=== PATIENT | female | born 1965 | race Caucasian/White ===

== ENCOUNTER 2016-12-05 19:06 | Emergency (ER) | payer OTHER ==
[2016-12-05 19:24] LABS: MANUAL DIFF NEEDED? NO
[2016-12-05 19:26] LABS: BASO% 0.3 % (0.0-0.8); EOS# 0.12 X1000 (0.0-0.7); HEMATOCRIT 42.5 % (37.0-47.0); HEMOGLOBIN 14.4 g/dL (12.0-16.0); LYMPH# 0.96 X1000 (1.2-3.4); LYMPH% 16.1 % (20.5-51.1); MCH 30.4 PG (27-31); MCHC 33.9 g/dL (33-37); MCV 89.9 FL (81-99); MONO# 0.43 X1000 (0.11-0.59); MONO% 7.2 % (1.7-9.3); MPV 8.8 FL (7.4-10.4); NEUT% 74.4 % (42.2-75.2); PLT 435 X1000 (130-400); RBC 4.73 XMIL (4.2-5.4)
[2016-12-05 19:35] LABS: URINE CULTURE NEEDED? NO; URINE MICRO REVIEW NEEDED? NO; URINE SOURCE CLEAN CATCH
[2016-12-05 19:38] LABS: BILIRUBIN URINE NEGATIVE (NEGATIVE); BLOOD URINE NEGATIVE (NEGATIVE); COLOR YELLOW; GLUCOSE URINE NEGATIVE (NEGATIVE); LEUKOCYTES URINE NEGATIVE (NEGATIVE); NITRITE URINE NEGATIVE (NEGATIVE); PROTEIN URINE NEGATIVE (NEGATIVE); SP GRAVITY URINE 1.017; TURBIDITY URINE CLEAR (CLEAR); UROBILINOGEN URINE NORMAL (NORMAL)
[2016-12-05 19:39] LABS: UR EPITHELIAL CELLS <10 /HPF (<10); URINE BACTERIA NEGATIVE /HPF; URINE RBC <10 /HPF (<10); URINE WBC <10 /HPF (<10)
[2016-12-05 19:51] LABS: AGAP 11; ALBUMIN 4.2 g/dL (3.5-5.0); ALKALINE PHOSPHATASE 86 U/L (32-104); AMYLASE 66 U/L (20-200); BUN 15 mg/dL (8-22); CALCIUM 9.7 mg/dL (8.8-10.2); CHLORIDE 99 mmol/L (98-107); COSMO 275; GOT 18 U/L (10-30); GPT 16 U/L (10-36); LIPASE 38 U/L (13-60); SODIUM 137 mmol/L (136-145); TCO2 27 mmol/L (25-35); TOTAL BILIRUBIN 0.24 mg/dL (0.20-1.00); TOTAL PROTEIN 7.8 g/dL (6.3-8.3)
[2016-12-05] MEDS ORDERED: PHENERGAN IM ONE (22:18)
[2016-12-05] MEDS ORDERED: SODIUM CHLORIDE 0.9% INJ ONE ×2 (22:18→22:20)
[2016-12-05] MEDS ORDERED: NS 1,000 ML IV ONE (22:18)
[2016-12-05] MEDS ORDERED: PROTONIX IV ONE (22:20)
[2016-12-05] MEDS ORDERED: G.I. COCKTAIL PO ONE (22:20)
--- NOTE | 2016-12-05 22:20 | PROVIDER DOCUMENTATION ---
HPI-Abdominal Pain/GI Problem - General Chief Complaint: Abdominal Pain Stated Complaint: ABD PAIN Time Seen by Provider: 12/05/16 21:43 Source: patient Allergies/Adverse Reactions: Patient Allergies Allergy/AdvReac Type Severity Reaction Status Date / Time Penicillins Allergy Intermediate RASH Verified 11/15/13 12:20 Home Medications: Home Medication List Medication Instructions Recorded Confirmed Last Taken Type Ciprofloxacin HCl [Cipro] 500 mg PO BID #14 tablet 12/06/16 Unknown Rx Meloxicam [Mobic] 15 mg PO DAILY 12/06/16 12/06/16 12/05/16 History Methylprednisolone [Medrol Dosepak] 4 mg PO DIRECTED #1 package 12/06/16 Unknown Rx Metronidazole 500 mg PO BID #14 tablet 12/06/16 Unknown Rx Pantoprazole [Protonix] 40 mg PO DAILY@0700 #30 tablet 12/06/16 Unknown Rx Promethazine [Phenergan] 25 mg PO Q6H PRN PRN #20 tablet 12/06/16 Unknown Rx Sertraline HCl [Zoloft] 100 mg PO DAILY 12/06/16 12/06/16 12/05/16 History - History of Present Illness-ABD Nature of Presenting Problems: 50 y/o WF c/o abd. pain, belching, N/V x 1 day. Pt states that she was seen by PCP about 2 weeks ago and was given Abx and prilosec and was fine until today. States sharp shooting pains in abdomen. Reports vomit x 1. States BM today; denies any diarrhea. States issues with gallbladder and last HIDA scan was over one year ago. Review of Systems - Adult - REVIEW OF SYSTEMS - ADULT Constitutional: reports: no symptoms reported. denies: chills, fever Eyes: reports: no symptoms reported. denies: blurred vision, double vision Ears, Nose, Mouth & Throat: reports: no symptoms reported. denies: ear pain, nose pain Cardiovascular: reports: no symptoms reported. denies: chest pain, palpitations Respiratory: reports: no symptoms reported. denies: dyspnea on exertion, shortness of breath Gastrointestinal: reports: see HPI, abdominal pain, nausea, vomiting. denies: constipation, diarrhea Genitourinary: reports: no symptoms reported Musculoskeletal: reports: no symptoms reported. denies: joint pain, joint swelling Integumentary: reports: no symptoms reported. denies: nail changes, rash Neurological: reports: no symptoms reported. denies: numbness, paresthesia Psychiatric: reports: no symptoms reported Endocrine: reports: no symptoms reported. denies: cold intolerance, heat intolerance Hematologic/Lymphatic: reports: no symptoms reported. denies: easy bruising, prolonged bleeding Allergic/Immunologic: reports: no symptoms reported All Other Systems: Reviewed and Negative Past History - Adult - PAST MEDICAL HISTORY-ADULT Review of Records: reports: Nursing Assessment Review, Medications Reviewed Musculoskeletal: reports: arthritis Psychiatric: reports: anxiety - PRIOR SURGERIES/PROCEDURES Surgical/Procedure History: reports: joint replacement (bilat hip replacement), back/neck - SOCIAL HISTORY Smoking: denies Alcohol Use Frequency: never Physical Exam-General - PHYSICAL EXAM-ADULT Initial Vital Signs Reviewed: Yes - CONSTITUTIONAL General Appearance: alert, moderate distress - EYES Eyes: pink conjunctivae - HEAD, EARS, NOSE, MOUTH & THROAT HENMT: normocephalic/atraumatic, moist mucous membranes, pharynx normal - NECK Neck: normal inspection - RESPIRATORY Respiratory: lungs clear, normal breath sounds. negative: crackles, rales, rhonchi, stridor, wheezing - CARDIOVASCULAR Cardiovascular: regular rate, rhythm. negative: bradycardia, tachycardia - GASTROINTESTINAL (ABDOMEN) Abdominal Exam: normal bowel sounds, soft, tenderness (generalized- mild, worse in epigastric and LLQ). negative: distended, guarding, rigid, McBurney's point tenderness - MUSCULOSKELETAL Back Exam: normal inspection, no CVA tenderness Extremity: normal gait - SKIN Integumentary: normal color, normal turgor, warm/dry - NEUROLOGIC Neurologic: negative: aphasia - PSYCHIATRIC Psych/Mental Status: normal mood/affect, normal thought content, normal thought process, oriented x 3 Progress - PLAN OF CARE/RESULTS Progress/Plan/Lab Results: Laboratory Tests 12/05/16 12/05/16 12/05/16 19:17 19:17 19:27 WBC 5.98 RBC 4.73 Hgb 14.4 Hct 42.5 MCV 89.9 MCH 30.4 MCHC 33.9 RDW Std Deviation 12.3 Plt Count 435 H MPV 8.8 Immature Gran % (Auto) 0.0 Neut % (Auto) 74.4 Lymph % (Auto) 16.1 L [place] % (Auto) 7.2 Eos % (Auto) 2.0 Baso % (Auto) 0.3 Immature Gran # (Auto) 0.00 Neut # (Auto) 4.45 Lymph # (Auto) 0.96 L [place] # (Auto) 0.43 Eos # (Auto) 0.12 Baso # (Auto) 0.02 Sodium 137 Potassium 4.0 Chloride 99 Carbon Dioxide 27 Anion Gap 11 BUN 15 Creatinine 0.9 Estimated GFR/1.73 m2 > 60 BUN/Creatinine Ratio 17 Glucose 107 H Calculated Osmolality 275 Calcium 9.7 Total Bilirubin 0.24 AST 18 ALT 16 Alkaline Phosphatase 86 Total Protein 7.8 Albumin 4.2 Globulin 3.6 Albumin/Globulin Ratio 1.2 Amylase 66 Lipase 38 Urine Source CLEAN CATCH Urine Color YELLOW Urine Turbidity CLEAR Urine pH 6.0 Ur Specific [place] 1.017 Urine Protein NEGATIVE Ur Glucose (Stick) NEGATIVE Ur Ketones (Stick) NEGATIVE Urine Blood NEGATIVE Urine Nitrite NEGATIVE Urine Bilirubin NEGATIVE Urobilinogen Dipstick NORMAL Urine Leukocytes NEGATIVE Urine WBC (Auto) <10 Urine RBC (Auto) <10 U Epithel Cells (Auto) <10 Urine Bacteria (Auto) NEGATIVE Orders Category Date Time Status Saline Loc NOW Care 12/05/16 22:[address] ABD/PELVIS W/ IV CONT ONLY [CT] Stat Exams 12/05/16 22:19 Draft AMYLASE [CHEM] Stat Lab 12/05/16 19:17 Completed CBC WITH ELECTRONIC DIFF [HEME] Stat Lab 12/05/16 19:17 Completed COMPREHENSIVE METABOLIC PANEL [CHEM] Stat Lab 12/05/16 19:17 Completed LIPASE [CHEM] Stat Lab 12/05/16 19:17 Completed URINALYSIS W/POSS RFLX CULT [URINALYSIS] Stat Lab 12/05/16 19:27 Completed 0.9% Sodium Chloride Inj [Ns] 1,000 ml Med 12/05/16 22:18 Discontinued IV 999 mls/hr Ciprofloxacin [Cipro] Med 12/06/16 02:04 Discontinued 500 mg PO NOW ONE Dexamethasone [Decadron] Med 12/06/16 02:04 Discontinued 10 mg IM NOW ONE [place] Alk/Al&mg Hydrox [G.i. Cocktail] Med 12/05/16 22:20 Discontinued 30 ml PO NOW ONE Pantoprazole [Protonix] Med 12/05/16 22:20 Discontinued 40 mg IV NOW ONE Promethazine [Phenergan] Med 03/12/17 22:18 Discontinued 25 mg IM NOW ONE Sodium Chloride 0.9% Med 12/05/16 22:18 Discontinued 10 ml INJ NOW ONE Sodium Chloride 0.9% Med 12/05/16 22:20 Discontinued 10 ml INJ NOW ONE Vital Signs Temp Pulse Resp BP Pulse Ox 12/06/16 02:43 97.7 F 74 20 128/81 98 12/06/16 01:00 67 18 121/75 98 12/05/16 19:14 97.6 F 98 H 18 131/67 100 Penicillins Allergy (Intermediate, Verified 11/15/13 12:20) RASH Ciprofloxacin HCl [Cipro] 500 mg PO BID #14 tablet 12/06/16 Meloxicam [Mobic] 15 mg PO DAILY 12/06/16 Methylprednisolone [Medrol Dosepak] 4 mg PO DIRECTED #1 package 12/06/16 Metronidazole 500 mg PO BID #14 tablet 12/06/16 Pantoprazole [Protonix] 40 mg PO DAILY@0700 #30 tablet 12/06/16 Promethazine [Phenergan] 25 mg PO Q6H PRN PRN #20 tablet 12/06/16 Sertraline HCl [Zoloft] 100 mg PO DAILY 12/06/16 Laboratory 12/05/16 12/05/16 12/05/16 19:27 19:17 19:17 WBC 5.98 RBC 4.73 Hgb 14.4 Hct 42.5 MCV 89.9 MCH 30.4 MCHC 33.9 RDW Std Deviation 12.3 Plt Count 435 H MPV 8.8 Immature Gran % (Auto) 0.0 Neut % (Auto) 74.4 Lymph % (Auto) 16.1 L [place] % (Auto) 7.2 Eos % (Auto) 2.0 Baso % (Auto) 0.3 Immature Gran # (Auto) 0.00 Neut # (Auto) 4.45 Lymph # (Auto) 0.96 L [place] # (Auto) 0.43 Eos # (Auto) 0.12 Baso # (Auto) 0.02 Sodium 137 Potassium 4.0 Chloride 99 Carbon Dioxide 27 Anion Gap 11 BUN 15 Creatinine 0.9 Estimated GFR/1.73 m2 > 60 BUN/Creatinine Ratio 17 Glucose 107 H Calculated Osmolality 275 Calcium 9.7 Total Bilirubin 0.24 AST 18 ALT 16 Alkaline Phosphatase 86 Total Protein 7.8 Albumin 4.2 Globulin 3.6 Albumin/Globulin Ratio 1.2 Amylase 66 Lipase 38 Urine Source CLEAN CATCH Urine Color YELLOW Urine Turbidity CLEAR Urine pH 6.0 Ur Specific [place] 1.017 Urine Protein NEGATIVE Ur Glucose (Stick) NEGATIVE Ur Ketones (Stick) NEGATIVE Urine Blood NEGATIVE Urine Nitrite NEGATIVE Urine Bilirubin NEGATIVE Urobilinogen Dipstick NORMAL Urine Leukocytes NEGATIVE Urine WBC (Auto) <10 Urine RBC (Auto) <10 U Epithel Cells (Auto) <10 Urine Bacteria (Auto) NEGATIVE Discussed pt with Dr. Steele; he agreed with d/c home. Discussed results, return precautions, medication use, and f/u with pt. - CT/MRI 1 CT Study: Abdomen, Pelvis Impression: See EMR Report (Nonspecific enteritis involving the distal ileum. This is most likely an infectious or inflammatory enteritis. There is mild functional ileus. No high-grade obstruction or free air. -per Dr. Campos ( [facility])) Departure - Departure Time of Disposition Order: 02:01 DIAGNOSIS: Enteritis Disposition: HOME 01 Certified Medical Emergency: Emergent Condition: Stable Additional Instructions: Take medications as directed. Follow up with specialist for further management. ED Follow Up Instructions: You have been treated by a care provider in the Emergency Department. These instructions are being provided to you so you can have an understanding of how to care for yourself upon discharge. Upon discharge from the Emergency Department, you are responsible for making arrangements for follow-up care by a physician of your choice. Take all prescribed medications as directed. Return to the Emergency Department immediately for any new or worsening symptoms. You may call the Physician Referral phone number at [phone] to obtain a list of Physicians who are taking new patients. Prescriptions: Ciprofloxacin HCl [Cipro] 500 mg PO BID #14 tablet Methylprednisolone [Medrol Dosepak] 4 mg PO DIRECTED #1 package Metronidazole 500 mg PO BID #14 tablet Promethazine [Phenergan] 25 mg PO Q6H PRN PRN #20 tablet PRN Reason: Nausea Pantoprazole [Protonix] 40 mg PO DAILY@0700 #30 tablet Referrals: Andrea Palacio MD [Primary Care Provider] - Lainey Gilliam MD [STAFF PHYSICIAN] - Instructions: Gastritis, Adult, [id number] Attestation - Physician/ MARY Attestation Patient care was provided by Advanced Practice Provider:: Yes Advanced Practice Provider:: Sana Wallace Advanced Practice Provider documentation review:: The Mid-level provider documentation, treatment plan and medical decision making was reviewed by the physician who agrees with all treatment and medical decision making by the MLP.
[2016-12-06] MEDS ORDERED: CIPRO PO ONE (02:04)
[2016-12-06] MEDS ORDERED: DECADRON IM ONE (02:04)
[2016-12-06 02:45] VITALS: BP 128/81
--- NOTE | 2016-12-06 10:49 | Diag Imaging Result Document ---
PROCEDURE NAME: CT ABD/PELVIS W/ IV CONT ONLY - 12/05/2016 CT ABDOMEN AND PELVIS WITH IV CONTRAST: COMPARISON: None available. FINDINGS: There is mild subsegmental atelectasis at the lung bases. There is a loop of small bowel at the ventral aspect of the abdominal cavity at the level of the umbilicus exhibiting moderate wall thickening and surrounding inflammatory stranding indicating nonspecific enteritis. There are shotty borderline to mildly prominent mesenteric lymph nodes adjacent to this loop of bowel. There is mild distention and air-fluid levels in small-bowel loops proximal to this. This is probably due to ileus. There is nothing specific for obstruction. There is a small amount of free fluid layering in the pelvis. No free abdominal gas is identified. There is no evidence of appendicitis. The pelvis is partially obscured by beam-hardening artifact related to bilateral hip arthroplasty. There is suggestion of small nodular thickening involving the fundus of the gallbladder. This may represent a gallbladder wall polyp. Consider followup with gallbladder ultrasound. There are no inflammatory changes to indicate cholecystitis. The remainder of the solid viscera of the abdomen and pelvis and the remainder of the GI tract is essentially unremarkable. IMPRESSION: 1. Thickened loop of small bowel with surrounding inflammatory changes and shotty borderline prominent adjacent lymph nodes as described. This indicates nonspecific enteritis, likely infectious or inflammatory. 2. Other incidental/nonacute findings detailed above.
== END 2016-12-06 02:52 | disposition home or self-care (01) ==
LOC: ED 19:06
DX: K52.9 Noninfective gastroenteritis and colitis, unspecified (principal); R10.9 Unspecified abdominal pain; R14.2 Eructation; R11.2 Nausea with vomiting, unspecified; R10.817 Generalized abdominal tenderness; R10.816 Epigastric abdominal tenderness; R10.814 Left lower quadrant abdominal tenderness; M19.90 Unspecified osteoarthritis, unspecified site; F41.9 Anxiety disorder, unspecified; Z79.899 Other long term (current) drug therapy; Z96.643 Presence of artificial hip joint, bilateral
CPT/HCPCS: 74177; 80053; 81001; 82150; 83690; 85025; 96372; 96374; C9113; J2550; J7030; Q9967; S0164

== ENCOUNTER 2018-12-20 21:05 | Inpatient (IN) ==
[2018-12-20] MEDS ORDERED: DILAUDID IV ONE (21:52)
[2018-12-20] MEDS ORDERED: NS 1,000 ML IV ONE (21:52)
[2018-12-20] MEDS ORDERED: ZOFRAN IV ONE (21:52)
--- NOTE | 2018-12-20 21:58 | PROVIDER DOCUMENTATION ---
HPI-Abdominal Pain/GI Problem - General Stated Complaint: ABD APIN Time Seen by Provider: 12/20/18 21:35 Source: patient Allergies/Adverse Reactions: Patient Allergies Allergy/AdvReac Type Severity Reaction Status Date / Time Penicillins Allergy Intermediate RASH Verified 12/20/18 22:14 Home Medications: Home Medication List Medication Instructions Recorded Confirmed Last Taken Type Meloxicam [Mobic] 15 mg PO DAILY 12/06/16 05/18/18 05/15/18 08:00 History Sertraline HCl [Zoloft] 100 mg PO DAILY 12/06/16 05/19/18 05/15/18 08:00 History Hydrocodone/Acetaminophen [[place] 1 each PO Q4HR PRN #30 tablet 05/19/18 Unknown Rx 5-325 Tablet] - History of Present Illness-ABD Nature of Presenting Problems: Patient is a 53 yowf who complains of generalized abdominal pain, mostly in the upper abdomen since last night. She describes the pain as "shooting" and similar to prior bowel obstruction. Pain is associated with n/v. She denies any other symptoms and is non-toxic in appearance. Review of Systems - Adult - REVIEW OF SYSTEMS - ADULT Constitutional: reports: no symptoms reported. denies: chills, fever Eyes: reports: no symptoms reported Ears, Nose, Mouth & Throat: reports: no symptoms reported Cardiovascular: reports: no symptoms reported Respiratory: reports: no symptoms reported Gastrointestinal: reports: see HPI, abdominal pain, nausea, vomiting. denies: constipation, diarrhea Genitourinary: reports: no symptoms reported Musculoskeletal: reports: no symptoms reported Integumentary: reports: no symptoms reported Neurological: reports: no symptoms reported Psychiatric: reports: no symptoms reported Endocrine: reports: no symptoms reported Hematologic/Lymphatic: reports: no symptoms reported Allergic/Immunologic: reports: no symptoms reported All Other Systems: Reviewed and Negative Past History - Adult - PAST MEDICAL HISTORY-ADULT Review of Records: reports: Old Records Reviewed, Nursing Assessment Review, Medications Reviewed, Social history reviewed & non-contributory. Major Childhood Illnesses: reports: denies history Cardiovascular: reports: denies history Respiratory: reports: asthma Gastrointestinal: reports: cancer (Gastric/bowel obstruction) Obstetrical/Gynecological: reports: denies history Genitourinary: reports: denies history Musculoskeletal: reports: arthritis Neurological: reports: denies history Psychiatric: reports: anxiety, depression Endocrine/Immune: reports: denies history Other Conditions: reports: denies history - PRIOR SURGERIES/PROCEDURES Surgical/Procedure History: reports: , bowel surgery, joint replacement (bilat hip replacement), back/neck - IMMUNIZATION STATUS Childhood Immunizations: See Nurse Assessment Flu Vaccine: See Nurse Assessment - FAMILY HISTORY Family History: reviewed, not pertinent - SOCIAL HISTORY Smoking: non-smoker Physical Exam-General - PHYSICAL EXAM-ADULT Initial Vital Signs Reviewed: Yes - CONSTITUTIONAL General Appearance: alert, mild distress. negative: lethargic, slow to respond - EYES Eyes: pink conjunctivae - HEAD, EARS, NOSE, MOUTH & THROAT HENMT: normocephalic/atraumatic, moist mucous membranes - NECK Neck: non-tender, full range of motion, supple, normal inspection - RESPIRATORY Respiratory: chest non-tender, lungs clear, normal breath sounds, no pleuratic chest pain, no respiratory distress, no accessory muscle use - CARDIOVASCULAR Cardiovascular: normal peripheral pulses, regular rate, rhythm, no gallop, no murmur - GASTROINTESTINAL (ABDOMEN) Abdominal Exam: normal bowel sounds, soft, no organomegaly, no pulsatile mass, tenderness (Diffuse). negative: distended, guarding, rigid, rebound, hernia, mass, hepatomegaly, splenomegaly - MUSCULOSKELETAL Back Exam: normal inspection, no CVA tenderness Extremity: normal range of motion, non-tender, normal gait, normal inspection - SKIN Integumentary: normal color, warm/dry. negative: cyanosis, diaphoresis, jaundice, mottled, pallor - NEUROLOGIC Neurologic: grossly normal, no motor/sensory deficits - PSYCHIATRIC Psych/Mental Status: normal mood/affect, normal thought content, normal thought process, oriented x 3 Progress - PLAN OF CARE/RESULTS Progress/Plan/Lab Results: Vital Signs - 8 hr 12/20/18 21:38 Temperature 97.7 F Pulse Rate 107 H Respiratory Rate 20 Blood Pressure 128/92 O2 Sat by Pulse Oximetry 97 Orders Category Date Time Status NPO Diet 12/20/18 21:52 Ordered AMYLASE [CHEM] Stat Lab 12/20/18 21:52 Uncollected CBC WITH DIFF [HEME] Stat Lab 12/20/18 21:52 Uncollected COMPREHENSIVE METABOLIC PANEL [CHEM] Stat Lab 12/20/18 21:52 Uncollected LIPASE [CHEM] Stat Lab 12/20/18 21:52 Uncollected TROPONIN T Stat Lab 12/20/18 21:53 Uncollected UA NIMS W/REFLEX CULT [URINALYSIS] Stat Lab 12/20/18 21:52 Uncollected Hydromorphone [Dilaudid] Med 12/20/18 21:52 Once 1 mg IV NOW ONE Ns 1000 ml IV Bolus X1 Med 12/20/18 21:52 Ordered 0.9% Sodium Chloride Inj [Ns] 1,000 ml IV 999 mls/hr Ondansetron [Zofran] Med 12/20/18 21:52 Once 4 mg IV NOW ONE EKG [EKG] Stat Ther 12/20/18 21:53 Ordered 0105- Admitting [facility] paged. Pt in agreement with admission plan. Requested not to have NG tube placed. She is not actively vomiting. Will discuss NG tube with Dr. Gonsalves and Dr. Ochoa. Result Diagrams: 12/20/18 21:50 12/20/18 21:50 - CT/MRI 1 CT Study: Abdomen, Pelvis (Impression: 1. Postsurgical changes left iliac fossa. Mechanical small bowel obstruction similar to previous. 2. Possible inflammatory bowel disease. Suggestion of an appendix that extends into the right iliac fossa noting edema in this region. Tip appendicitis is not excluded. Finding is similar to previous. 4. Small hiatal hernia. Possible small gastric fundus diverticulum.) - CONSULTS/PCP/HOSPITALIST Notification #1 *Consult/PCP/Hospitalist*: Dr. Gonsalves Time Discussed: 01:03 Reason/Comments: SBO Consult Disposition: Admit (Md states to admit to [facility] and they can consult him and he will see her tomorrow.) #2 Consult: Dr. Ochoa Time Discussed: 01:45 Consult Disposition: Admit (States NG tube can be held at this time since pt is not actively vomiting at this time.) Departure - Departure Date of Disposition Decision: 12/21/18 Time of Disposition Decision: 01:47 DIAGNOSIS: SBO (small bowel obstruction) Disposition: ADMITTED INPATIENT 09 Certified Medical Emergency: Emergent Condition: Stable Referrals and Follow-Ups: Andrea Palacio MD [Primary Care Provider] - - Critical Care Note This patient required my direct & personal management of CC.: No Attestation - Physician/ MARY Attestation Patient care was provided by Advanced Practice Provider:: Yes Advanced Practice Provider:: Efren Rosenbaum Advanced Practice Provider documentation review:: The Mid-level provider documentation, treatment plan and medical decision making was reviewed by the physician who agrees with all treatment and medical decision making by the MLP. The physician spent face to face time with patient:: No Advanced Practice Provider documentation review:: Supervising physician onsite and consulted in the evaluation and care of this patient. The physician did not have a face to face encounter with the patient.
[2018-12-20 22:05] LABS: BASO# 0.01 X1000 (0.0-0.2); BASO% 0.2 % (0.0-0.8); EOS% 1.5 % (0.0-10.0); HEMOGLOBIN 15.9 g/dL (12.0-16.0); LYMPH# 0.87 X1000 (1.2-3.4); LYMPH% 13.4 % (20.5-51.1); MCH 30.2 PG (27-31); MCHC 34.6 g/dL (33-37); MCV 87.3 FL (81-99); MONO# 0.51 X1000 (0.11-0.59); MONO% 7.9 % (1.7-9.3); MPV 8.9 FL (7.4-10.4); NEUT# 4.98 X1000 (1.4-6.5); PLT 323 X1000 (130-400); RBC 5.27 XMIL (4.2-5.4); RDW 13.7 % (11.5-14.5); WBC 6.47 X1000 (4.8-10.8)
--- NOTE | 2018-12-20 22:25 | ED EKG INTERP ---
This chart was entered by Barrington Schultz Scribe, acting as scribe for Axel Gonzales MD. EKG Interpretation - EKG Time of EKG reading by physician:: 22:02 EKG Read and Signed by:: Axel Gonzales EKG Interpretation (*Must complete 3 of following elements*): Normal Rate: 85 Rhythm: NSR [place]: normal QRS: normal [place] Interval: normal ST Wave: normal Attestation - Physician/ MARY Attestation Patient care was provided by Advanced Practice Provider:: Yes Advanced Practice Provider documentation review:: The Mid-level provider documentation, treatment plan and medical decision making was reviewed by the physician who agrees with all treatment and medical decision making by the MLP. The physician spent face to face time with patient:: No Advanced Practice Provider documentation review:: Supervising physician onsite and consulted in the evaluation and care of this patient. The physician did not have a face to face encounter with the patient. This chart was documented by the indicated scribe, (Barrington Schultz Scribe) and accurately reflects the services I performed and decisions made by Christian godoy Brad R., MD, as attested by the provider's signature.
[2018-12-20 22:31] LABS: URINE SOURCE CLEAN CATCH
[2018-12-20 22:52] LABS: AGAP 17; ALB/GLOB RATIO 1.3; ALBUMIN 4.2 g/dL (3.5-5.0); ALKALINE PHOSPHATASE 98 U/L (32-104); AMYLASE 43 U/L (20-200); BUN 15 mg/dL (8-22); CHLORIDE 95 mmol/L (98-107); COSMO 269; CREATININE 0.8 mg/dL (0.5-0.9); ESTIMATED GFR > 60; GLUCOSE 134 mg/dL (70-104); GOT 35 U/L (10-30); GPT 18 U/L (10-36); LIPASE 40 U/L (13-60); POTASSIUM 5.1 mmol/L (3.5-5.1); SODIUM 133 mmol/L (136-145); TCO2 21 mmol/L (25-35); TOTAL PROTEIN 7.5 g/dL (6.3-8.3)
[2018-12-20 23:17] LABS: UR EPITHELIAL CELLS <10 /HPF (<10); URINE BACTERIA NEGATIVE /HPF; URINE RBC <10 /HPF (<10); URINE WBC <10 /HPF (<10)
[2018-12-20 23:26] LABS: BILIRUBIN URINE SMALL (NEGATIVE); BLOOD URINE NEGATIVE (NEGATIVE); COLOR YELLOW; GLUCOSE URINE NEGATIVE (NEGATIVE); KETONE URINE 40 mg/dL (NEGATIVE); LEUKOCYTES URINE NEGATIVE (NEGATIVE); NITRITE URINE NEGATIVE (NEGATIVE); PH URINE 6.5; PROTEIN URINE 30 mg/dL (NEGATIVE); SP GRAVITY URINE 1.023; TURBIDITY URINE CLEAR (CLEAR); UROBILINOGEN URINE 3 mg/dL (NORMAL)
[2018-12-21] MEDS ORDERED: DILAUDID IV ONE (02:12)
[2018-12-21] MEDS ORDERED: ZOFRAN IV ONE (02:13)
[2018-12-21] MEDS ORDERED: NS 1,000 ML IV ONE (02:33)
[2018-12-21] MEDS ORDERED: DILAUDID IV PRN (03:01)
[2018-12-21] MEDS ORDERED: TYLENOL PO PRN (03:01)
[2018-12-21] MEDS ORDERED: SODIUM CHLORIDE 0.9% INJ SCH (03:01)
[2018-12-21] MEDS ORDERED: ZOFRAN IV PRN (03:01)
[2018-12-21] MEDS: LOVENOX SUBQ SCH (03:38)
[2018-12-21] MEDS: POTASSIUM CHLORIDE 10 MEQ in NS 1,000 ML IV SCH ×4 (03:38→20:18)
[2018-12-21] MEDS: OFIRMEV 1000 MG/ISOTONIC SOLN 1,000 MG/100 ML BOTTLE IV SCH ×4 (03:38→20:18)
[2018-12-21] MEDS: LEVAQUIN 750 MG/D5W 750 MG/150 ML IVPB IV SCH (03:38)
--- NOTE | 2018-12-21 04:07 | HISTORY AND PHYSICAL ---
PHYSICIAN: Andrea Palacio MD REASON FOR ADMISSION: Two-day history of upper abdominal pain. HISTORY OF PRESENT ILLNESS: Ms. Norma Luna is a pleasant 53-year-old woman with history of gastric carcinoid tumor. She is followed by Dr. Manzano. Recently underwent an octreotide scan which was reportedly stable and unremarkable. This was done 3 days ago. The patient reports that 2 days ago she had her last bowel movement. She developed sudden diffuse colicky abdominal pain which is intermittent. She said the pain became more frequent and intense over the last 12 hours and this was accompanied by 3 episodes of persistent vomiting. All in all, she has vomited in the last 16 hours no less than 12 times. Denies any hematemesis. She has not had a bowel movement since Tuesday. Denies any genitourinary complaints. Admits to feeling a little thirsty. No fever, no chills, no cardiorespiratory complaints. No facial flushing. No focal neurological complaints. No rash. She has chronic hip pain, more so on the left compared to the right because she had recent revision of her left hip. Otherwise, review of systems is grossly unremarkable other than the findings noted in the HPI. REVIEW OF SYSTEMS: Twelve system review was done. ALLERGIES: Penicillin. HOME MEDICATIONS: None. SURGICAL HISTORY: She has had, I believe, 3 surgeries on the left hip and 1 on the right. She has also had a cholecystectomy, small bowel resection with anastomosis last year, several back surgeries, neck surgeries and 3 C-sections. SOCIAL HISTORY: She does not smoke, drink or use illicit drugs. She is a head physical therapist. FAMILY HISTORY: Vascular disease in her father who is . LABORATORY: White count 6000, hemoglobin and hematocrit 16 and 46, platelets 323,000, 77% neutrophils. Sodium 133, BUN 15, creatinine 0.8, glucose 134. Total bilirubin 1.1, AST 35, ALT 18. Troponin, lipase and amylase all normal. Urinalysis: Trace protein, trace ketones, bilirubin is small. CT scan report did show dilated small bowel loops, possible edema in the right lower quadrant area and possible inflammatory changes of the small and large bowel. An EKG was done which showed normal sinus rhythm with ST changes, consider ischemia. PHYSICAL EXAMINATION: GENERAL APPEARANCE: Pleasant, middle-aged woman who is not in acute distress. She alert and oriented x3 with normal mood and affect. HEENT: Head is normocephalic, atraumatic. Eyes: PERRLA, EOMI. She is not icteric and not pale. ENT and oropharyngeal exam is grossly normal except for mild xerostomia. No central cyanosis. NECK: Short and thick. No JVD, carotid bruits or thyromegaly. CHEST: Clear when auscultated with good air entry in both lung oneill. CARDIOVASCULAR: First and second heart sounds heard. No gallops, murmurs or rubs. Rhythm is regular. ABDOMEN: Full, soft. There is tenderness which is diffuse and possibly rebound, but no guarding. Bowel sounds are hypoactive at this time. No mass or organomegaly appreciated. RECTAL: Exam is deferred. EXTREMITIES: The patient has significantly decreased pulse volumes in all extremities. Rhythm is regular, symmetrical. No edema, clubbing or peripheral cyanosis. NEUROLOGIC: No gross focal deficits. SKIN: Intact with no breakdown, lesion or erythema. MUSCULAR: Grossly normal. ASSESSMENT: 1. Small bowel obstruction with possible inflammatory component. 2. Hypernatremia. 3. Dehydration. PLAN: The patient will be kept n.p.o. and will be seen by Dr. Gonsalves who was notified of her findings on the CT scan. The patient will be transferred to Dr. Palacio's service in the a.m. Will treat the patient symptomatically with opioid analgesia and antiemetics. I have taken the liberty of starting pt on Ofirmev to hopefully decrease opioid use so that peristalsis will not be heavily compromised. For now we will conservatively manage her for the next hopefully 48-72 hours. I have encouraged ambulation that this will resolve on its down. Due to the peritoneal findings noted on my exam and the CT scan findings, I will empirically cover her with antibiotics, even though she has no fever or chills, or no white count for now. Aggressive IV fluid hydration will be instituted and I's and O's should be monitored clinically. Serial abdominal x-rays should be ordered to document the patient's improvement. IV PPIs will be instituted in view of the fact that the patient has had multiple vomiting episodes and may have mild to moderate gastritis. cc: MD Andrea Hinton MD [facility] HOSPITALHortencia
[2018-12-21] MEDS: FLAGYL 500 MG/NS 500 MG/100 ML IVPB IV SCH ×3 (05:43→17:06)
[2018-12-21] MEDS ORDERED: BENADRYL IV PRN (07:05)
[2018-12-21 07:27] LABS: AGAP 8; BUN 15 mg/dL (8-22); CALCIUM 8.9 mg/dL (8.8-10.2); CHLORIDE 105 mmol/L (98-107); COSMO 277; CREATININE 0.8 mg/dL (0.5-0.9); ESTIMATED GFR > 60; GLUCOSE 109 mg/dL (70-104); POTASSIUM 4.1 mmol/L (3.5-5.1); SODIUM 138 mmol/L (136-145); TCO2 25 mmol/L (25-35)
--- NOTE | 2018-12-21 07:33 | GENERAL SURGERY CONSULTATION ---
DATE: 12/21/2018 REQUESTING PHYSICIAN: The hospitalist service, covering for Dr. Palacio. REASON FOR CONSULTATION: Consult is concerning small bowel obstruction. HISTORY OF PRESENT ILLNESS: A 53-year-old female well known to me, whom I follow for a carcinoid tumor. She came in now with a 2-day history of lack of bowel movement and some abdominal pain. She has been followed by myself and Dr. Mary Manzano for screening for possible recurrence of her carcinoid. She had a recent nuclear medicine octreotide scan which did not show any obvious signs of recurrence but she has come in with a bowel obstruction. She had a CT scan today that showed a bowel obstruction. I did not identify a clear transition point but there is some edema in the mesentery to suggest an acute process. She is currently feeling a little bit better. She is not significantly sick to her stomach. I was asked to weigh an opinion. PAST MEDICAL HISTORY: Includes a history of a carcinoid tumor and arthritis. PAST SURGICAL HISTORY: Includes previous cholecystectomy, previous bowel resection for carcinoid, previous hip surgery. ALLERGIES: Penicillin. HOME MEDICATIONS: None. CURRENT MEDICATIONS: Reviewed. SOCIAL HISTORY: Does not smoke. FAMILY HISTORY: Positive for vascular disease. REVIEW OF SYSTEMS: A full 10 point review of systems was obtained and negative except as specified in the HPI. PHYSICAL EXAMINATION: Vital Signs: The patient is currently afebrile. Her vital signs are stable. General Examination: No acute distress. Alert, interactive, female. Looks stated age. HEENT: Normocephalic, atraumatic. Pupils equal, round, reactive to light. Mucous membranes moist. Oropharynx benign. Neck: Supple. Trachea midline. Cardiovascular: Regular rate and rhythm. Lungs: Grossly clear. Abdomen: Soft, nondistended. Only minimal tenderness to palpation. No peritoneal signs. Extremities: Moves all extremities. Neurologic: Grossly intact. Skin: No signs of jaundice. Vascular: All extremities perfused. LABORATORY DATA: Reviewed. White blood cell count is normal, hematocrit is normal, platelet count normal. Remainder of labs reviewed. CT scan, official report is pending but reviewed preliminary report independently, reviewed the images. She does have what looks like a small bowel obstruction. ASSESSMENT AND PLAN: A 53-year-old female with a history of carcinoid tumor, now with small bowel obstruction. Small bowel obstruction. At this time, based off of her recent octreotide scan, I do not think she has a recurrence of the carcinoid tumor. This may be just related to adhesions. At this point, we will keep her nothing per oral and monitor her. She is not significantly sick to her stomach to merit a nasogastric tube but may need to consider that if she does. If she does not seem to improve in the next couple days, may need to consider surgical intervention but we will follow with you. cc: MD Andrea Mejia MD
--- NOTE | 2018-12-21 07:49 | Diag Imaging Result Doc PS360 ---
EXAM: CT ABD/PELVIS W/IV CONT ONLY INDICATION: abd pain TECHNIQUE: This exam was performed using automated exposure control, adjustment of mA or kV according to patient size, and/or use of iterative reconstruction technique. COMPARISON: CT bony pelvis dated 05/04/[address] abdomen and pelvis dated 01/26/2018 FINDINGS: There is mild subsegmental atelectasis at the lung bases. There has been a prior cholecystectomy. The liver, spleen, pancreas, adrenal glands, and kidneys are grossly unremarkable. The urinary bladder is obscured by beam hardening artifact from bilateral hip arthroplasty hardware. There are multiple distended loops of small bowel with air-fluid levels consistent with small bowel obstruction. There is edema in the mesentery and mesenteric lymphadenopathy adjacent to these loops of bowel. These dilated loops of bowel are near 80 surgical anastomosis in the left lower quadrant. The appendix is not clearly identified but the tip is obscured by a small amount of pelvic fluid that probably is a result of bowel obstruction rather than inflammation of the appendix. There is probably a small gastric fundus diverticulum seen incidentally. There is a tiny hiatal hernia. The remainder of the GI tract is essentially unremarkable. There are degenerative changes involving the lumbar spine. IMPRESSION: 1.Small bowel obstruction with the transition probably in the lower mid abdomen or left lower quadrant. 2.Shotty mesenteric lymphadenopathy and mesenteric edema admitted the distended loops of bowel. 3.Other incidental/nonacute findings detailed above. Electronically signed by Nj Nicole 12/21/2018 7:47 AM
--- NOTE | 2018-12-21 07:57 | EKG Report ---
Test Performed on : 12/20/2018 10:02:17 PM Test Reason : upper abdominal pain Blood Pressure : / mmHG Vent. Rate : 085 BPM Atrial Rate : 085 BPM P-R Int : 142 ms QRS Dur : 072 ms QT Int : 380 ms P-R-T Axes : 029 031 057 degrees QTc Int : 452 ms Normal sinus rhythm. Normal ECG When compared with ECG of 15-NOV-2013 12:19, Nonspecific T wave abnormality, improved in Lateral leads Unconfirmed Result
[2018-12-21] MEDS: PROTONIX IV SCH (08:01)
[2018-12-21] MEDS ORDERED: RELISTOR SUBQ ONE (08:33)
--- NOTE | 2018-12-21 09:12 | PROGRESS NOTE ---
DATE: 12/21/2018 SUBJECTIVE: The patient was admitted last night with small bowel obstruction, nausea, vomiting, and no bowel movement. She has had this before. The chart was reviewed. OBJECTIVE: Vital Signs: 97.8, 66, 20, 99/58, 96% saturated on room air. General: On physical examination, the patient is emotionally upset about being in the hospital again. Lungs: Clear. Cardiovascular: Regular. Abdomen: Abdomen is soft and not really protuberant or distended. There are few, if any bowel sounds noted on auscultation. She has had diffuse mild tenderness. ASSESSMENT AND PLAN: We will continue with antiemetic therapy and intravenous fluids. Her low blood pressure may be indicative of relative dehydration. We will continue coverage with antibiotics, even though she has not manifested a fever or white count. The patient would like to avoid a nasogastric tube if at all possible. I am going to change her Zofran to every 6 hours and add Reglan every 6 hours, as well as give a dose of Relistor because I do not want her present pain control measures to interfere with bowel function. cc: Andrea Palacio MD
[2018-12-21] MEDS: REGLAN IV SCH ×3 (09:17→20:17)
[2018-12-21] MEDS: ZOFRAN IV SCH ×2 (11:45→17:06)
--- NOTE | 2018-12-21 19:10 | Diag Imaging Result Doc PS360 ---
EXAM: ABDOMEN FLAT/UPRIGHT INDICATION: possible ileus TECHNIQUE: 2 views COMPARISON: 05/16/2018 FINDINGS: There are several mild to moderately distended loops of small bowel, mainly in the left upper quadrant. These are nonspecific. These may represent ileus or low-grade obstruction. Stool is seen in the colon. No large volume free abdominal gas is appreciated. IMPRESSION: Mild to moderately gas-distended loops of small bowel in the left upper quadrant as described. Electronically signed by Nj Nicole 12/21/2018 7:07 PM
[2018-12-22] MEDS: FLAGYL 500 MG/NS 500 MG/100 ML IVPB IV SCH ×3 (00:58→11:42)
[2018-12-22] MEDS: ZOFRAN IV SCH ×2 (04:00→10:42)
[2018-12-22] MEDS: REGLAN IV SCH ×3 (04:00→14:58)
[2018-12-22] MEDS: LOVENOX SUBQ SCH (04:01)
[2018-12-22] MEDS: LEVAQUIN 750 MG/D5W 750 MG/150 ML IVPB IV SCH (04:01)
--- NOTE | 2018-12-22 05:50 | GENERAL SURGERY PROGRESS NOTE ---
DATE: 12/22/2018 SUBJECTIVE: Patient says she is passing gas. Says she is feeling a little bit better. She does have a little bit of incisional pain, but otherwise seems to be doing okay. She says she has passed at least 4 or 5 episodes of gas. OBJECTIVE: Vital Signs: Patient is currently afebrile. Her vital signs are stable. General: No acute distress. HEENT: Normocephalic, atraumatic. Pupils equal, round, reactive to light. Mucous membranes moist. Oropharynx benign. Neck: Supple. Trachea midline. Cardiovascular: Regular rate and rhythm. Lungs: Grossly clear. Abdomen: Soft, nondistended. Bowel sounds auscultated, although they are a little bit faint. No peritoneal signs on exam. Extremities: Moves all extremities. Neurologic: Grossly intact. Skin: No signs of jaundice. Vascular: All extremities perfused. LABORATORY: Pending from this morning. Abdominal film from yesterday reviewed. ASSESSMENT AND PLAN: A 53-year-old female with small-bowel obstruction. Small-bowel obstruction. At this time, we will give her clear liquid diet. She seems to be doing okay. Hopefully, we can avoid a surgery on her. We will monitor her closely. cc: MD Andrea Mejia MD
[2018-12-22 06:32] LABS: BASO# 0.01 X1000 (0.0-0.2); BASO% 0.4 % (0.0-0.8); EOS% 3.7 % (0.0-10.0); HEMATOCRIT 37.6 % (37.0-47.0); HEMOGLOBIN 12.5 g/dL (12.0-16.0); LYMPH# 0.68 X1000 (1.2-3.4); LYMPH% 25.2 % (20.5-51.1); MCH 30.4 PG (27-31); MCHC 33.2 g/dL (33-37); MCV 91.5 FL (81-99); MONO# 0.29 X1000 (0.11-0.59); MONO% 10.7 % (1.7-9.3); MPV 8.8 FL (7.4-10.4); NEUT# 1.62 X1000 (1.4-6.5); PLT 207 X1000 (130-400); RBC 4.11 XMIL (4.2-5.4); RDW 13.5 % (11.5-14.5)
[2018-12-22] MEDS ORDERED: TYLENOL PO PRN (10:00)
--- NOTE | 2018-12-22 10:24 | PROGRESS NOTE ---
DATE: 12/22/2018 SUBJECTIVE: The patient states that she is feeling much better today. She has passed some gas, but not had a bowel movement. Dr. Aguirre saw her earlier today and started her on clear liquids. She has been up and walking the halls. She describes a sensation of the locality of her pain moving around her abdomen to the left side now. OBJECTIVE: Vital Signs: Temperature 98.4, pulse 77, respirations 20, blood pressure 108/69. General: The patient is alert, oriented, conversive and appropriate. Lungs: Clear. Cardiovascular: Regular. Abdomen: Shows bowel sounds are present. She is not distended. ASSESSMENT AND PLAN: The patient's ileus is rather inexplicable at this point. There have been no other signs of infection and the only thing that I can figure is that somehow her participation in the octreotide scan affected her bowel function temporarily. She seems to be on the road to recovery. I told her that if she has a bowel movement today, I will discharge her home with no changes in medications. She is encouraged to walk in the halls. cc: Andrea Palacio MD
[2018-12-22] MEDS: PROTONIX IV SCH (10:42)
[2018-12-22] MEDS: OFIRMEV 1000 MG/ISOTONIC SOLN 1,000 MG/100 ML BOTTLE IV SCH ×2 (10:43→15:06)
[2018-12-22] MEDS: POTASSIUM CHLORIDE 10 MEQ in NS 1,000 ML IV SCH (11:41)
[2018-12-22 12:49] VITALS: BP 118/75
== END 2018-12-22 16:58 | disposition home or self-care (01) | DRG 389 ==
LOC: SUPCPDRO → ED 21:05 → SUATTDRO 12-21 02:30 → 4N 12-21 02:30
PROVIDERS: ADMIT Internal Medicine; ATTEND Internal Medicine
CPT/HCPCS: 74019; 74020; 74177; 80048; 80053; 81001; 82150; 83690; 83735; 84100; 84484; 85025; 93005; 96361; 96374; 96375; 96376; 99285; C9113; J0131; J1170; J1650; J1956; J2405; J2765; J3480; J7030; Q9967; S0030; S0164

== ENCOUNTER 2019-06-23 21:18 | Inpatient (IN) ==
[2019-06-23] MEDS ORDERED: MORPHINE IV ONE (21:28)
[2019-06-23] MEDS ORDERED: ZOFRAN IV ONE (21:28)
[2019-06-23] MEDS ORDERED: NS 1,000 ML IV ONE (21:28)
[2019-06-23 22:08] LABS: BASO# 0.02 X1000 (0.0-0.2); BASO% 0.3 % (0.0-0.8); HEMATOCRIT 43.6 % (37.0-47.0); HEMOGLOBIN 15.6 g/dL (12.0-16.0); LYMPH# 0.55 X1000 (1.2-3.4); LYMPH% 7.1 % (20.5-51.1); MCHC 35.8 g/dL (33-37); MCV 89.5 FL (81-99); MONO# 0.28 X1000 (0.11-0.59); MONO% 3.6 % (1.7-9.3); MPV 8.8 FL (7.4-10.4); NEUT# 6.88 X1000 (1.4-6.5); PLT 307 X1000 (130-400); RBC 4.87 XMIL (4.2-5.4); WBC 7.73 X1000 (4.8-10.8)
[2019-06-23 22:14] LABS: INR 1.04; PROTIME 13.7 Seconds (11.0-16.0); PTT 24.4 Seconds (22.3-41.8)
[2019-06-23 22:32] LABS: AGAP 16; ALB/GLOB RATIO 1.3; ALBUMIN 4.4 g/dL (3.5-5.0); ALKALINE PHOSPHATASE 94 U/L (32-104); AMYLASE 36 U/L (20-200); BUN 20 mg/dL (8-22); CHLORIDE 99 mmol/L (98-107); COSMO 277; CREATININE 0.8 mg/dL (0.5-0.9); ESTIMATED GFR > 60; GLUCOSE 146 mg/dL (70-104); GOT 25 U/L (10-30); GPT 38 U/L (10-36); LIPASE 19 U/L (13-60); SODIUM 136 mmol/L (136-145); TCO2 21 mmol/L (25-35); TOTAL BILIRUBIN 0.73 mg/dL (0.20-1.00); TOTAL PROTEIN 7.9 g/dL (6.3-8.3)
[2019-06-23 23:45] LABS: URINE SOURCE CLEAN CATCH
--- NOTE | 2019-06-24 00:01 | PROVIDER DOCUMENTATION ---
This chart was entered by Meron Grayson Scribe, acting as scribe for Vanda Gonsalves CRNP. HPI-Abdominal Pain/GI Problem - General Chief Complaint: Abdominal Pain Stated Complaint: BOWEL OBSTRUCION Time Seen by Provider: 06/23/19 21:25 Source: patient Allergies/Adverse Reactions: Patient Allergies Allergy/AdvReac Type Severity Reaction Status Date / Time Penicillins Allergy Intermediate RASH Verified 12/20/18 22:14 Home Medications: Home Medication List Medication Instructions Recorded Confirmed Last Taken Type Meloxicam [Mobic] 15 mg PO DAILY 12/06/16 05/18/18 05/15/18 08:00 History Sertraline HCl [Zoloft] 100 mg PO DAILY 12/06/16 05/19/18 05/15/18 08:00 History Acetaminophen [Tylenol] 650 mg PO Q6H PRN PRN tab 12/22/18 Unknown Rx - History of Present Illness-ABD Nature of Presenting Problems: pt is a 53 yr old female presenting with 1 day complaint of epigastric pain, nausea nd vomiting. pt reports onset this AM. pt admits hx of bowel obstruction, last was 12/12, per pt this pain is same as then. pt denies diarrhea, fever/chills Abdominal Pain Onset Location: reports: epigastric Pain Radiation: reports: no radiation Quality of Pain: reports: aching Severity in ED: reports: moderate Onset/Duration: reports: this morning Timing: reports: still present Activities at Onset: reports: light activity Modifying Factors: improves with: nothing Associated Symptoms: reports: nausea, vomiting. denies: chest pain, constipation, diarrhea, fever/chills, genitourinary problems, shortness of breath Dark Stools Present?: reports: none noticed Rectal Bleeding: reports: none Rectal Pain: reports: none Emesis Description: reports: clear Bruising or Bleeding Gums?: No Similar Symptoms Previously?: Yes Recently seen or treated by another doctor?: No Review of Systems - Adult - REVIEW OF SYSTEMS - ADULT Constitutional: denies: chills, fever Eyes: reports: no symptoms reported Ears, Nose, Mouth & Throat: reports: no symptoms reported Cardiovascular: denies: chest pain, palpitations, syncope Respiratory: denies: dyspnea on exertion, shortness of breath Gastrointestinal: reports: see HPI, abdominal pain, nausea, vomiting. denies: constipation, diarrhea Genitourinary: denies: dysuria, frequency, flank pain Musculoskeletal: reports: no symptoms reported Integumentary: reports: no symptoms reported Neurological: denies: dizziness/vertigo, headache/migraines, syncope Psychiatric: reports: no symptoms reported Endocrine: reports: no symptoms reported Hematologic/Lymphatic: reports: no symptoms reported Allergic/Immunologic: reports: no symptoms reported All Other Systems: Reviewed and Negative Past History - Adult - PAST MEDICAL HISTORY-ADULT Review of Records: reports: Old Records Reviewed, Nursing Assessment Review, Medications Reviewed, Social history reviewed & non-contributory. Major Childhood Illnesses: reports: denies history Cardiovascular: reports: denies history Respiratory: reports: asthma Gastrointestinal: reports: cancer (Gastric/bowel obstruction) Obstetrical/Gynecological: reports: denies history Genitourinary: reports: denies history Musculoskeletal: reports: arthritis Neurological: reports: denies history Psychiatric: reports: anxiety, depression Endocrine/Immune: reports: denies history Other Conditions: reports: denies history - PRIOR SURGERIES/PROCEDURES Surgical/Procedure History: reports: , bowel surgery, joint replacement (bilat hip replacement), back/neck - IMMUNIZATION STATUS Childhood Immunizations: See Nurse Assessment Flu Vaccine: See Nurse Assessment - FAMILY HISTORY Family History: reviewed, not pertinent - SOCIAL HISTORY Smoking: denies Substance Use: denies Living Situation: family Physical Exam-General - PHYSICAL EXAM-ADULT Initial Vital Signs Reviewed: Yes - CONSTITUTIONAL General Appearance: alert, no apparent distress - EYES Eyes: PERRL/EOMI - HEAD, EARS, NOSE, MOUTH & THROAT HENMT: normocephalic/atraumatic, moist mucous membranes, normal ENT inspection - NECK Neck: non-tender, full range of motion, supple, normal inspection - RESPIRATORY Respiratory: chest non-tender, lungs clear, normal breath sounds, no respiratory distress, no accessory muscle use - CARDIOVASCULAR Cardiovascular: normal peripheral pulses, regular rate, rhythm, no edema - GASTROINTESTINAL (ABDOMEN) Abdominal Exam: soft, abnormal bowel sounds (high pitched bowel sounds), tenderness (epigastric, RUQ tenderness) - LYMPHATIC Lymphatic: no adenopathy - MUSCULOSKELETAL Back Exam: normal inspection Extremity: normal range of motion, non-tender, normal gait, normal inspection - SKIN Integumentary: normal color, normal turgor, warm/dry - NEUROLOGIC Neurologic: grossly normal - PSYCHIATRIC Psych/Mental Status: normal mood/affect Progress - PLAN OF CARE/RESULTS Progress/Plan/Lab Results: Vital Signs - 8 hr 06/23/19 21:19 Temperature 97.8 F Pulse Rate 89 Respiratory Rate 20 Blood Pressure 146/97 O2 Sat by Pulse Oximetry 96 Orders Category Date Time Status Saline Loc NOW Care 06/23/19 21:[address] ABD/PELVIS W/IV CONT ONLY [CT] Stat Exams 06/23/19 21:29 Ordered AMYLASE [CHEM] Stat Lab 06/23/19 21:28 Uncollected CBC WITH ELECTRONIC DIFF [HEME] Stat Lab 06/23/19 21:28 Uncollected COMPREHENSIVE METABOLIC PANEL [CHEM] Stat Lab 06/23/19 21:28 Uncollected LIPASE [CHEM] Stat Lab 06/23/19 21:28 Uncollected PROTIME WITH INR [COAG] Stat Lab 06/23/19 21:28 Uncollected PTT [COAG] Stat Lab 06/23/19 21:28 Uncollected 0.9% Sodium Chloride Inj [Ns] 1,000 ml Med 06/23/19 21:28 Active IV 999 mls/hr Morphine Med 06/23/19 21:28 Discontinued 4 mg IV NOW ONE Ondansetron [Zofran] Med 06/23/19 21:28 Discontinued 4 mg IV NOW ONE Result Diagrams: 06/23/19 21:59 06/23/19 21:59 - CT/MRI 1 CT Study: Abdomen, Pelvis Impression: Abnormal (SBO PER [facility] CALLED REPORT BY SILVANO) - CONSULTS/PCP/HOSPITALIST Notification #1 *Consult/PCP/Hospitalist*: DR DOUGLAS Time Discussed: 00:01 Consult Disposition: Admit Departure - Departure Date of Disposition Decision: 06/24/19 Time of Disposition Decision: 00:00 DIAGNOSIS: SBO (small bowel obstruction) Disposition: ADMITTED INPATIENT 09 Certified Medical Emergency: Emergent Condition: Stable Referrals and Follow-Ups: Andrea Palacio MD [Primary Care Provider] - - Critical Care Note This patient required my direct & personal management of CC.: No Attestation - Physician/ MARY Attestation Patient care was provided by Advanced Practice Provider:: Yes Advanced Practice Provider:: Vanda Gonsalves Advanced Practice Provider documentation review:: The Mid-level provider documentation, treatment plan and medical decision making was reviewed by the physician who agrees with all treatment and medical decision making by the MLP. The physician spent face to face time with patient:: No Advanced Practice Provider documentation review:: Supervising physician onsite and consulted in the evaluation and care of this patient. The physician did not have a face to face encounter with the patient. This chart was documented by the indicated scribe, (Meron Grayson Scribe) and accurately reflects the services I performed and decisions made by , Vanda Gonsalves CRNP, as attested by the provider's signature.
[2019-06-24] MEDS ORDERED: ZOFRAN IV PRN (00:44)
[2019-06-24 01:06] LABS: BILIRUBIN URINE NEGATIVE (NEGATIVE); BLOOD URINE NEGATIVE (NEGATIVE); COLOR YELLOW; GLUCOSE URINE NEGATIVE (NEGATIVE); KETONE URINE 40 mg/dL (NEGATIVE); LEUKOCYTES URINE NEGATIVE (NEGATIVE); NITRITE URINE NEGATIVE (NEGATIVE); PROTEIN URINE NEGATIVE (NEGATIVE); TURBIDITY URINE CLEAR (CLEAR); UROBILINOGEN URINE NORMAL (NORMAL)
[2019-06-24 01:07] LABS: UR EPITHELIAL CELLS <10 /HPF (<10); URINE BACTERIA NEGATIVE /HPF; URINE RBC <10 /HPF (<10); URINE WBC <10 /HPF (<10)
--- NOTE | 2019-06-24 05:28 | HISTORY AND PHYSICAL ---
PRIMARY CARE PHYSICIAN: Dr. Palacio. CHIEF COMPLAINT: Abdominal pain. HISTORY OF PRESENTING ILLNESS: A 53-year-old female without any significant past medical history presented to emergency department with several days history of having worsening abdominal pain. She described it as cramping and states that she was nauseated. She was evaluated in the emergency department. She had a CT scan done of the abdomen which did show a small bowel obstruction. Her case was discussed with General Surgery who recommended admission for further management. At the time of my examination, patient denied any headache, fever, chills, chest pain, shortness of breath, hemoptysis, melena or weight changes, but complained of abdominal pain. PAST MEDICAL HISTORY: None. PAST SURGICAL HISTORY: Bilateral hip replacement, cholecystectomy, back surgery, abdominal surgery. ALLERGIES: Penicillin. CURRENT MEDICATIONS: None. SOCIAL HISTORY: No history of smoking, alcohol or illicit drug use. FAMILY HISTORY: No history of coronary artery disease. REVIEW OF SYSTEMS: Fourteen point review of systems as in HPI. Other systems negative. PHYSICAL EXAMINATION: GENERAL: Cooperative, friendly female. She is resting more comfortably now. VITAL SIGNS: Temperature 97.8 degrees, pulse 89, respirations 20, blood pressure 146/97. HEENT: Atraumatic, normocephalic. Extraocular movements intact. PERRLA. NECK: Supple. CHEST: Clear to auscultation. CARDIOVASCULAR: Regular rate and rhythm. ABDOMEN: Soft. Some mild tenderness. EXTREMITIES: No edema. NEUROLOGIC: She is awake, alert, oriented x3. GENITOURINARY: No bladder distention. SKIN: Warm. LABORATORIES AND STUDIES: WBC 7.73, hemoglobin 15.6, hematocrit 43.6, platelets 307,000. Sodium 136, potassium 4.0, chloride 99, CO2 is 21, BUN is 20, creatinine 0.8, glucose 146. ASSESSMENT: This is a 53-year-old female without any significant past medical history who presented to the emergency department with several days history of having abdominal pain. She was evaluated in the emergency department. She had a CT scan of the abdomen done which did show a small bowel obstruction. Subsequently, she will require admission for further management. Small bowel obstruction. PLAN: 1. We will admit patient to medical floor. 2. Keep patient NPO. 3. Continue with supportive treatment with IV fluids, antiemetics, pain control. 4. We will consult General Surgery. 5. Put patient on DVT prophylaxis with SCD. 6. We will continue to follow, reassess and make further recommendation based on patient's clinical course. cc: MD Andrea Tucker MD
--- NOTE | 2019-06-24 06:25 | GENERAL SURGERY CONSULTATION ---
DATE: 06/24/2019 REQUESTING PHYSICIAN: Dr. Garcia. REASON FOR CONSULTATION: Bowel obstruction. HISTORY OF PRESENT ILLNESS: A 53-year-old female, well known to me, who has had a previous history of abdominal small-bowel carcinoid tumor and previous bowel obstructions, presenting now with similar episode with a bowel obstruction. She was back here in November for a similar episode, which I saw and evaluated her for then. She improved clinically with just nonoperative management. She is back in now with a several day history of worsening abdominal pain, cramping, and nausea. She is feels a little bit better since she was admitted, but still having some nausea. PAST MEDICAL HISTORY: History of carcinoid tumor of small bowel. PAST SURGICAL HISTORY: Includes previous cholecystectomy, previous small-bowel resection, previous bilateral hip replacement, previous back surgery. ALLERGIES: Penicillin. HOME MEDICATIONS: Reviewed. SOCIAL HISTORY: No alcohol, tobacco, or illicit drugs. FAMILY HISTORY: Reviewed with patient, noncontributory. REVIEW OF SYSTEMS: A full 14 systems reviewed and negative, except as specified in HPI. PHYSICAL EXAMINATION: Vital Signs: Patient is currently afebrile. Her vital signs stable. General: No acute distress. HEENT: Normocephalic, atraumatic. Pupils equal, round, reactive to light. Mucous membranes moist. Oropharynx benign. Neck: Supple. Trachea midline. Cardiovascular: Regular rate and rhythm. Lungs: Grossly clear. Abdomen: Previous surgical scar noted, healing well. Abdomen is minimally distended. No real peritoneal signs. Extremities: Moves all extremities. Neurologic: Grossly intact. Skin: No signs of jaundice. Vascular: All extremities perfused. LABORATORY: Reviewed. White blood cell count is normal, there is no left shift. Remainder of labs appear to be normal. IMAGING: Reviewed. It seemed like she is obstructed, transition point just below lower aspect of her incision. This looks like it is in a similar position as previous. ASSESSMENT AND PLAN: A 53-year-old female with recurrent small-bowel obstruction. Recurrent small-bowel obstruction. At this time, given its anatomical location, I think it is related to adhesions. At this point, patient does not want to proceed with surgery and wants to do nonoperative management, which I think is likely the best option at this point. We will continue to monitor her, if she does not seem to improve may consider surgical intervention, but otherwise continue supportive care. I appreciate the consult. cc: MD Andrea Mejia MD
--- NOTE | 2019-06-24 07:16 | Diag Imaging Result Doc PS360 ---
EXAM: CT ABD/PELVIS W/IV CONT ONLY HISTORY: abd pain, N/V, TENDERNESS, HX OF SBO TECHNIQUE: CT abdomen and pelvis with intravenous contrast COMPARISON: 12/20/2018 FINDINGS: The gallbladder has been removed. Trace fluid about the liver. No focal hepatic abnormality although there may be mild fatty infiltration. Normal spleen, pancreas, adrenal glands, and aorta. Normal enhancement of the kidneys. Proximal and mid ureters are normal. The distal ureters are obscured. There are multiple dilated small bowel loops measuring up to 3.3 cm in diameter. Transition point is in the left lower quadrant. The distal small bowel loops are not dilated. No abscess. The urinary bladder is distended and is normal. Normal uterus. Prominent metallic artifact in the pelvis from bilateral hip prostheses. Trace fluid in the pelvis. IMPRESSION: 1.Small bowel obstruction in the left lower quadrant 2.Cholecystectomy 3.Trace fluid about the liver and in the pelvis 4.A preliminary report was given at 11:51 PM on 06/23/2019 This exam was performed using automated exposure control, adjustment of mA or kV according to patient size, and/or use of iterative reconstruction technique. Electronically signed by Mp Meneses 06/24/2019 7:14 AM
[2019-06-24] MEDS: MORPHINE IV PRN ×2 (07:51→17:43)
--- NOTE | 2019-06-24 11:01 | PROGRESS NOTE ---
DATE: 06/24/2019 SUBJECTIVE: The patient states she is feeling a little bit better. Her pain is not as severe and is not coming as often. She feels her guts moving around. She has not passed any flatus that we are aware of. She did not have any difficulty with bowel movements prior to the onset of her pain yesterday. OBJECTIVE: Vital Signs: 98.8, 60, 20, 99/56, 97% saturated on room air. Physical Examination: The patient is alert, oriented, conversive, and appropriate. Lungs are clear. Cardiovascular: Regular. Abdomen: Bowel sounds are present. She has mild to moderate tenderness in the area between the upper epigastrium and the umbilicus. She is not really tender in the left lower quadrant. ASSESSMENT AND PLAN: The patient has a history of small-bowel obstruction which is likely due to surgical adhesion. This is her second episode this year. Consideration for laparoscopic lysis of adhesions is being entertained. Hopefully, if this is undertaken, that will alleviate the mechanical obstruction which is leading her to this type of difficulty. We will continue intravenous fluids and bowel rest, and see if this will resolve itself on its own. I appreciate Dr. Rey Aguirre for his input on this case. cc: Andrea Palacio MD
[2019-06-24] MEDS: NS 1,000 ML IV SCH (17:43)
[2019-06-25] MEDS ORDERED: FLEET ENEMA PR ONE (05:35)
[2019-06-25] MEDS ORDERED: MIRALAX PO ONE (05:35)
[2019-06-25] MEDS ORDERED: DILAUDID IV PRN (05:35)
--- NOTE | 2019-06-25 06:53 | GENERAL SURGERY PROGRESS NOTE ---
DATE: 06/25/2019 SUBJECTIVE: The patient says she is feeling a little bit worse today. She has passed gas. OBJECTIVE: Vital Signs: The patient is currently afebrile. Her vital signs are stable. General Examination: No acute distress but appears uncomfortable. female, looks stated age. HEENT: Normocephalic, atraumatic. Pupils equal, round, reactive to light. Mucous membranes moist. Oropharynx benign. Neck: Supple. Trachea midline. Cardiovascular: Regular rate and rhythm. Lungs: Grossly clear. Abdomen: Soft, nondistended. Bowel sounds auscultated. Some tenderness noted in the epigastric area but no peritoneal signs. Extremities: Moves all extremities. Neurologic: Grossly intact. Skin: No signs of jaundice. Vascular: All extremities perfused. Laboratory: None this morning as of yet. ASSESSMENT AND PLAN: A 53-year-old female with bowel obstruction. Bowel obstruction. At this time, she is complaining of epigastric pain. The only thing in the area that looked somewhat possible for pain is constipation in the transverse colon. We did offer again surgical intervention but she still wants to hold off of it. Given the fact that this may be related to constipation, we will try gentle attempted MiraLAX and an enema. I have discussed with the patient that if she seems to be getting worse with this, let me know. We can hold off on completing the therapy but would like to, at least, try to clear her out a little bit and see if that is the source of the problems that she is hurting away from her bowel obstruction. If there is no improvement, may need to consider surgical intervention but, at this point, we will continue to follow. cc: MD Andrea Mejia MD
[2019-06-25 07:20] LABS: BASO# 0.01 X1000 (0.0-0.2); BASO% 0.2 % (0.0-0.8); EOS# 0.18 X1000 (0.0-0.7); EOS% 3.9 % (0.0-10.0); HEMATOCRIT 38.8 % (37.0-47.0); HEMOGLOBIN 13.2 g/dL (12.0-16.0); LYMPH# 0.68 X1000 (1.2-3.4); LYMPH% 14.8 % (20.5-51.1); MCH 31.9 PG (27-31); MCV 93.7 FL (81-99); MONO# 0.37 X1000 (0.11-0.59); MPV 9.1 FL (7.4-10.4); NEUT# 3.36 X1000 (1.4-6.5); NEUT% 73.1 % (42.2-75.2); PLT 231 X1000 (130-400); RBC 4.14 XMIL (4.2-5.4); RDW 12.1 % (11.5-14.5)
[2019-06-25 07:35] LABS: AGAP 10; BUN 15 mg/dL (8-22); CALCIUM 8.4 mg/dL (8.8-10.2); CHLORIDE 106 mmol/L (98-107); COSMO 276; CREATININE 0.7 mg/dL (0.5-0.9); ESTIMATED GFR > 60; GLUCOSE 82 mg/dL (70-104); POTASSIUM 3.8 mmol/L (3.5-5.1); SODIUM 138 mmol/L (136-145); TCO2 22 mmol/L (25-35)
[2019-06-25] MEDS: NS 1,000 ML IV SCH (07:43)
--- NOTE | 2019-06-25 09:07 | PROGRESS NOTE ---
DATE: 06/25/2019 SUBJECTIVE: The patient has had a bowel movement this morning. She said it was mostly liquid. She continues to have epigastric pain. Yesterday morning, when I spoke with her, her pain had improved but over the course of the afternoon, the cramping pain increased in frequency and, to a certain degree, in intensity. Dr. Aguirre's note has been read. OBJECTIVE: Vital Signs: 98.4, 59, 17, 105/64, 99% saturated on room air. Physical Examination: The patient is alert, oriented, conversive, and appropriate. The abdomen is not distended. Bowel sounds are present but less so than they were yesterday. She still has epigastric tenderness which is mild to moderate. There is no rigidity. ASSESSMENT AND PLAN: We will allow the patient to have some ice chips. She is already having MiraLAX mixed in juice today. We will see if we can reduce further bowel movements and alleviation of pressure. The patient has declined surgical intervention at present. I do think at some point, lysis of adhesions will be in order. This may be immediate if she does not have significant relief shortly. cc: Andrea Palacio MD
--- NOTE | 2019-06-26 09:38 | PROGRESS NOTE ---
DATE: 06/26/2019 SUBJECTIVE: The patient passed some stool this morning. She has been passing flatus. She states that she feels her abdominal contents "moving around". She states that her pain overall has diminished. She still has some epigastric pain but now has some left lower quadrant pain and tenderness that was not there previously. OBJECTIVE: Vital Signs: 97.6 degrees, 67, 16, 98/59, 98% saturated on room. General: Patient is alert, oriented, conversive and appropriate. Cardiovascular: Regular. Abdomen: Shows bowel sounds are present in all 4 quadrants. She has mild tenderness in the epigastric area and in the left lower quadrant. There is no rigidity. ASSESSMENT AND PLAN: 1. Dr. Aguirre has advanced her diet. Hopefully, we can avoid surgery at this time. I am sure that if she tolerates this well and has continued diminishment in her pain level, she will be discharged within the next 24 hours or so. 2. Noted lower blood pressure. We will continue to follow this. cc: Andrea Palacio MD
--- NOTE | 2019-06-26 09:46 | GENERAL SURGERY PROGRESS NOTE ---
DATE: 06/26/2019 SUBJECTIVE: Patient is feeling a little bit better compared to yesterday. She is not having the same epigastric tenderness that she did. She has passed some gas, and had some liquid output. OBJECTIVE: Vital Signs: Patient is currently afebrile. Her vital signs are stable. General: No acute distress. Resting comfortably. HEENT: Normocephalic, atraumatic. Pupils equal, round, and reactive to light. Mucous membranes moist. Oropharynx benign. Neck: Supple. Trachea midline. Cardiovascular: Regular rate and rhythm. Lungs: Grossly clear. Abdomen: Soft. No real tenderness. No real distention. No peritoneal signs. Extremities: Moves all extremities. Neurologic: Grossly intact. Skin: No signs of jaundice. Vascular: All extremities perfused. LABORATORY: Reviewed from yesterday. White blood cell count is 4, hematocrit is normal. Remainder of labs reviewed. ASSESSMENT AND PLAN: A 53-year-old female with bowel obstruction. Bowel obstruction. At this time, she has made some improvement. She is passing gas. She is less tender. We will try her on a clear liquid diet, and see how she does. She has not really had much in the way of stool output per se, but she is passing gas. Again, we will try the clear liquid diet to see how she does. She still wants to try to hold off on any kind of surgical intervention. If she continues to improve, we may be able to do so. I will continue to follow while she is in the hospital. cc: MD Andrea Mejia MD
[2019-06-26] MEDS: TYLENOL PO PRN (22:42)
--- NOTE | 2019-06-27 07:35 | GENERAL SURGERY PROGRESS NOTE ---
DATE: 06/27/2019 SUBJECTIVE: Patient seems to be doing about the same. The patient seems to be doing better. She is tolerating her liquid diet. She has had a small bowel movement. Her pain is decreased. She is wanting more diet. OBJECTIVE: Vital Signs: Patient is currently afebrile. Her vital signs stable. General: No acute distress cardiovascular correction. HEENT: Normocephalic, atraumatic. Pupils equal, round, reactive to light. Mucous membranes moist. Oropharynx benign. Neck: Supple trachea midline. Cardiovascular: Regular rate and rhythm. Lungs: Grossly clear. Abdomen: Soft, nontender, nondistended. Extremities: Moves all extremities. Neurologic: Grossly intact. Skin: No signs of jaundice. Vascular: All extremities perfused. LABORATORY: None this morning as of yet. ASSESSMENT AND PLAN: A 53-year-old female with bowel obstruction. 1. Bowel obstruction. At this time, it seems to be improving. We will put her on a regular diet. Continue to monitor how she does. Hopefully, she can go home soon. I think we have gotten her over this episode, but discussed with her that she may have repeat episodes, but hopefully we can manage it nonoperatively. We will continue to follow while she is in the hospital. cc: MD Andrea Mejia MD
[2019-06-27] MEDS ORDERED: MIRALAX PO SCH (09:00)
[2019-06-27] MEDS: TYLENOL PO PRN (10:29)
--- NOTE | 2019-06-27 18:40 | Diag Imaging Result Doc PS360 ---
EXAM: FLAT/UPRIGHT ABD/1 VIEW CHEST 06/27/2019 HISTORY: PSBO TECHNIQUE: Flat and upright abdomen with PA chest COMMENT: There is no evidence of obstruction organomegaly or mass. The chest is without evidence of cardiac or pulmonary disease. IMPRESSION: No evidence of small bowel obstruction or other acute abnormality. Electronically signed by Flaco Vazquez 06/27/2019 6:38 PM
--- NOTE | 2019-06-27 21:13 | PROGRESS NOTE ---
DATE: 06/27/2019 SUBJECTIVE: I delayed the dictation of this note to see how the patient did today because I was expecting that she would do well and be ready for discharge. Unfortunately, this was not the case. She stated that although she ate most of her 3 meals, she felt that she became full very quickly. She felt that she became bloated and she felt like she no longer feels her intestines moving around. She is not passing gas and did not have a bowel movement today. OBJECTIVE: Vital Signs: 97.5, 80, 18, 121/80, 99% saturated on room air. This morning when I examined the patient, she was alert, oriented, conversive, and appropriate. Bowel sounds were present. She was less tender in the epigastrium and left lower quadrant compared to yesterday. There was no rigidity. ASSESSMENT AND PLAN: Dr. Aguirre had already decided to feed the patient today and see how she did. Obviously, she did not do as well as expected. She has been walking in the halls. I had intended to order an x-ray this morning, but through a computer glitch, which was mostly my fault, it was not ordered until tonight. We will see the results of this and then check her status in the morning. At the present time, she is leaning toward exploratory laparoscopy with possible lysis of adhesions. cc: Andrea Palacio MD
[2019-06-27] MEDS: MIRALAX PO SCH (23:09)
[2019-06-28] MEDS ORDERED: PRILOSEC PO SCH (07:00)
[2019-06-28 07:28] VITALS: BP 105/60
--- NOTE | 2019-06-28 07:35 | GENERAL SURGERY PROGRESS NOTE ---
DATE: 06/27/2019 SUBJECTIVE: I came to see the patient this evening. She apparently had a rough day. Her abdominal film did not look impressive. It is essentially normal to me, and to the radiologist. She is not having pain, but she has not passed any gas, and feels a little bit bloated. ASSESSMENT AND PLAN: We will try MiraLAX twice a day. At this point, given the lack of pain, and the lack of obstructive pattern on imaging, would like to try to hold off on any kind of surgery. We will have to see how she does. Her abdominal film does look improved even compared to the baseball scout film of the CT scan so again we will try to monitor. cc: MD Andrea Mejia MD
[2019-06-28] MEDS: MIRALAX PO SCH (08:39)
[2019-06-28] MEDS ORDERED: FLU VACCINE IM ONE (08:48)
--- NOTE | 2019-06-28 09:29 | GENERAL SURGERY PROGRESS NOTE ---
DATE: 06/28/2019 SUBJECTIVE: Patient doing better, even feeling better than she did last night. OBJECTIVE: Vital Signs: Patient is currently afebrile. Her vital signs are stable. General exam: No acute distress. HEENT: Normocephalic, atraumatic. Pupils equal, round, and reactive to light. Mucous membranes moist. Oropharynx benign. Neck: Supple. Trachea midline. Cardiovascular: Regular rate and rhythm. Lungs: Grossly clear. Abdomen: Soft. Nontender, nondistended. Extremities: Moves all extremities. Neurologic: Grossly intact. Skin: No signs of jaundice. Vascular: All extremities perfused. LABORATORY AND X-RAY DATA: None this morning as of yet. Abdominal film from yesterday reviewed. No obstructive pattern. ASSESSMENT AND PLAN: This is a 53-year-old female with small-bowel obstruction. Small bowel obstruction. At this time, she seems to be improving. She did have a rough day yesterday, but she looks better than even she did last night. Her abdominal film does not show any acute pathology. She is passing gas but I would, ideally, like to see her have a bowel movement before we discharge her, but I think she is doing okay right now. We will still try to hold off on any kind of surgery. cc: MD Andrea Mejia MD
--- NOTE | 2019-06-29 07:47 | DISCHARGE SUMMARY ---
ADMISSION DATE: 06/23/2019 DISCHARGE DATE: 06/28/2019 DISCHARGE DIAGNOSES: 1. Partial small bowel obstruction. 2. History of abdominal surgery. 3. Bilateral hip replacement. 4. Nausea. OPERATIVE PROCEDURES: None. CONSULTATIONS: Red Aguirre MD HOSPITAL COURSE: A 53-year-old white female presented to the emergency room with a one-day history of abdominal pain and nausea, which was consistent with her previous history of a partial small bowel obstruction. Her last episode was in November of 2018. The patient is admitted to the hospital and put on bowel rest. She had a rather slow recovery for the first few days, but did feel her bowels start to move. She continued to have loose stools and passed flatus after a short time. We slowly increased the patient's diet, but she had some bloating and discomfort which persisted when she started back eating. Initially, her pain was confined to the epigastrium or in the location of the transverse colon, but eventually also settled into the left lower quadrant. This resolved at the time of discharge. Repeat flat and upright series prior to discharge showed no evidence of obstruction or bowel dilatation. I have discussed this with Dr. Aguirre, and we discharged the patient home in good condition with follow up on as-needed basis. Should this type of problem recur, both Dr. Aguirre and I agreed that we would need to proceed with a laparoscopic lysis of adhesions, which is the most likely cause of this issue. We will entertain the prospect of an outpatient small-bowel follow-through to look for any type of stricture or other obstructive process which is obvious. cc: Andrea Palacio MD
== END 2019-06-28 11:11 | disposition home or self-care (01) | DRG 390 ==
LOC: ED 21:18 → 4N 21:19 → SUATTDRO 21:19
PROVIDERS: ADMIT Internal Medicine; ATTEND Internal Medicine

== ENCOUNTER 2019-09-24 11:43 | Observation (INO) ==
[2019-09-24] MEDS ORDERED: SALINE LOCK IV FLUID XX ONE (11:57)
[2019-09-24] MEDS ORDERED: NS 3,000 ML IV ONE (11:57)
[2019-09-24] MEDS: NS 1,000 ML IV SCH (15:00)
[2019-09-24 15:03] LABS: BASO# 0.03 X1000 (0.0-0.2); BASO% 0.6 % (0.0-0.8); EOS# 0.16 X1000 (0.0-0.7); EOS% 3.4 % (0.0-10.0); HEMATOCRIT 46.5 % (37.0-47.0); HEMOGLOBIN 15.7 g/dL (12.0-16.0); LYMPH# 1.05 X1000 (1.2-3.4); LYMPH% 22.4 % (20.5-51.1); MCH 31.6 PG (27-31); MCHC 33.8 g/dL (33-37); MCV 93.6 FL (81-99); MONO# 0.41 X1000 (0.11-0.59); MONO% 8.8 % (1.7-9.3); MPV 8.9 FL (7.4-10.4); NEUT# 3.03 X1000 (1.4-6.5); NEUT% 64.8 % (42.2-75.2); PLT 252 X1000 (130-400); RBC 4.97 XMIL (4.2-5.4); RDW 12.7 % (11.5-14.5); WBC 4.68 X1000 (4.8-10.8)
[2019-09-24 15:42] LABS: AGAP 16; ALB/GLOB RATIO 1.2; ALBUMIN 4.2 g/dL (3.5-5.0); ALKALINE PHOSPHATASE 79 U/L (32-104); BUN 13 mg/dL (8-22); CALCIUM 9.7 mg/dL (8.8-10.2); CHLORIDE 97 mmol/L (98-107); COSMO 268; CREATININE 0.8 mg/dL (0.5-0.9); ESTIMATED GFR > 60; GLUCOSE 97 mg/dL (70-104); GOT 21 U/L (10-30); GPT 24 U/L (10-36); POTASSIUM 3.7 mmol/L (3.5-5.1); SODIUM 134 mmol/L (136-145); TCO2 21 mmol/L (25-35); TOTAL BILIRUBIN 0.99 mg/dL (0.20-1.00); TOTAL PROTEIN 7.6 g/dL (6.3-8.3)
--- NOTE | 2019-09-24 17:40 | Diag Imaging Result Doc PS360 ---
EXAM: CT ABD/PELVIS W/IV CONT ONLY 09/24/2019 HISTORY: sbo TECHNIQUE: This exam was performed using automated exposure control, adjustment of mA or kV according to patient size, and/or use of iterative reconstruction technique. COMMENT: The current study is compared to the previous study of 06/23/2019. There is no evidence of abdominal aortic aneurysm. The mesenteric and renal arteries are patent. There is no evidence of nephrolithiasis or hydronephrosis. There has been cholecystectomy. There is no evidence of acute disease in the visualized portion of the chest. The spleen and adrenal glands are unremarkable. The pancreas is within normal limits. There are no renal masses. The liver is unremarkable in appearance. The stomach is not distended. There is a distended and somewhat thickened appearing loop of small bowel present in the left lower abdomen. There are number of prominent nodes in this area particularly on image 101 of the venous phase which appears to be enhancing with contrast and measuring over 12 mm in AP diameter. This was also present on the previous study. There is an anastomosis in the small bowel just below the iliac crests. This appears to be associated with a stricture. There is no evidence of appendicitis. Pelvis: In addition to the above findings, there is no evidence of adnexal masses and the urinary bladder is unremarkable. There is less free fluid than on the previous study. There are bilateral hip prostheses. There are spondylotic changes in the lumbar spine. IMPRESSION: Partial small bowel obstruction apparently due to stricture associated with a an anastomosis in the left lower abdomen and upper pelvis. Mesenteric adenopathy. Electronically signed by Flaco Vazquez 09/24/2019 5:38 PM
[2019-09-24] MEDS: ZOFRAN IV PRN (17:55)
[2019-09-25] MEDS: NS 1,000 ML IV SCH ×2 (04:46→17:49)
--- NOTE | 2019-09-25 07:06 | GENERAL SURGERY CONSULTATION ---
DATE: 09/24/2019 CHIEF COMPLAINT: Nausea, vomiting and colicky abdominal pain. REASON FOR CONSULTATION: Bowel obstruction. HISTORY OF PRESENT ILLNESS: This is a 53-year-old female patient Dr. August who had a carcinoid resection almost 2 years ago. She has had subsequent bowel obstructions in November and June. She has also had a cholecystectomy and recent EGD and colonoscopy. She is a nurse here at the hospital. She said the 48 hours ago she developed some colicky abdominal pain, nausea, vomiting. She has self-implemented bowel rest and has felt some better. She has had ongoing bowel function, no blood. She has had workup including upper GIs over the last year that have showed no persistent stricture. She denies any other change in bowel habits and had not eaten anything unusual. Weight has been stable. MEDICAL: History of carcinoid, depression. SURGICAL HISTORY: She has had exploratory laparotomy. She had an ovarian cystectomy, 3 C sections and a laparoscopic cholecystectomy. SOCIAL HISTORY: No tobacco, alcohol, or drugs. She is a nurse. FAMILY HISTORY: Reviewed and negative for cancer. REVIEW OF SYSTEMS: A 10-point review of systems was performed and negative otherwise as mentioned in HPI. PHYSICAL EXAMINATION: Vital signs: She is afebrile. Pulse is 89, blood pressure 111/86, oxygen saturation 97%. General: She is alert. HEENT: No scleral icterus. No cervical mass. Cardiovascular: Normal rate. Pulmonary: No increased work of breathing. Abdomen: Soft, nontender, nondistended. Integument: Warm, dry without jaundice. Psychiatric: Appropriate affect. Neurologic: No gross deficits. Lymphatic: No cervical axillary or inguinal adenopathy. Peripheral vascular: Trace lower extremity edema. LABS: I have reviewed her labs. White count is normal at 4. Hematocrit 46, platelets 252,000, creatinine 0.8, potassium slightly low at 3.7. LFTs are normal. Albumin is 4.2. She has also had a CT scan. Formal report is pending but on my read, she has gallbladder clips in the fossa with no evidence of complication. Liver appears normal. Stomach is decompressed. There was suture material consistent with prior bowel obstruction. There is some prominent loops of small bowel. She does have some prominent mesenteric lymph nodes, some relatively decompressed small bowel in the right lower quadrant. ASSESSMENT AND PLAN: This is a 53-year-old female with history of carcinoid. She has had recurrent bowel obstructions. On current exam, I do not see evidence of perforation or strangulation. I do see some prominent lymph nodes which is concerning in the setting of her prior carcinoid tumor. A dedicated scan may be warranted to further evaluate these as well as a 5 HIA tumor markers. I am not sure who her previous oncologist was, but it may be worth engaging them. From a bowel obstruction standpoint, she seems to be only partially obstructed if at all and has ongoing bowel function with no further nausea vomiting. Abdominal exam is benign. We will follow her closely going forward. I do think she is a bit dehydrated with low potassium. It would be reasonable to correct these and we will follow her going forward. Given her recurrent symptoms, operation is not out of the question, but we will follow her closely. I would agree with bowel rest. Would hold off on nasogastric tube at this juncture. cc: MD Andrea Matos MD
[2019-09-25] MEDS: ZOFRAN IV PRN (09:59)
--- NOTE | 2019-09-25 14:51 | PROGRESS NOTE ---
DATE: 09/25/2019 SUBJECTIVE: The patient states that her abdomen is feeling better. She is still hurting, but not exquisitely so. She feels occasional rumbles in her gut. She still has pain in the upper quadrant and slight tenderness in the left lower quadrant. OBJECTIVE: Vital Signs: 97.7, 77, 16, 124/94, 97% saturated on room air. PHYSICAL EXAMINATION: General: The patient is alert, oriented, conversive and appropriate. Lungs: Clear. Cardiovascular: Regular. Abdomen: Shows scant bowel sounds, mild distention and a little bit of upper quadrant tenderness on both sides. ASSESSMENT AND PLAN: Patient has partial bowel obstruction. 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 At some point, this will need to be addressed. There did not appear to be any other transition point or source of anatomical obstruction on her CT scan. We will continue the patient NPO with IV fluids and bowel rest and monitor her progress. Surgery is following this case. ADDENDUM: After discussing the case with Dr. Metzger and given the scope of workup remaining, it was decided to discharge the patient home tonight. Dr Metzger arranged follow up with Dr. Manzano on to get tumor markers drawn and a PET scan before proceeding with resection. The patient has improved enugh to tolerate liquid diet. Discharge diagnoses 1. Partial small bowel obstruction 2. Hx carcinoid tumor 3. abdominal pain 4. nausea and vomiting.. cc: Andrea Palacio MD MTDD
[2019-09-25 15:43] VITALS: BP 115/73
--- NOTE | 2019-09-25 19:11 | GENERAL SURGERY PROGRESS NOTE ---
DATE: 09/25/2019 SUBJECTIVE: She feels better. No more pain no more nausea, vomiting. She is passing gas. No fevers, no tachycardia. Blood pressure 124/69, oxygen saturation 96% .General: She is alert. Cardiovascular: Normal rate. Abdomen: Soft, nontender. Integument: Warm, dry. Reviewed her labs nothing new today. ASSESSMENT AND PLAN: This 53-year-old female with history of carcinoid tumor resected 2 years ago she has had recurrent bowel obstruction. I reviewed her images of the last year, I talked to Dr. Manzano, reviewed her pathology and her previous operative notes. It appears as though her problem area is at her anastomosis. She has had some persistent nonspecific lymphadenopathy the small bowel mesentery. This constellation of findings is somewhat concerning possible recurrence of her anastomosis as anastomotic stricture is benign strictures relatively uncommon in a stapled side-to- side anastomosis. I have talked to Dr. Manzano about this. Given that her obstructive symptoms have only been partial in nature and seem to be alleviated we recommended further staging workup with dedicated carcinoid PET scan as well as a biochemical evaluation prior to what I feel is necessary is a formal oncologic resection this anastomosis with lymphadenectomy and revision of her anastomosis. I have discussed this with the patient. She would like to go home. I recommend remaining on a modified full liquid diet, soft diet until were able to schedule her electively. In the meantime I have talked to Dr. Manzano will get appointment with her and she will have a dedicated imaging and biochemical workup as it has been several months since she has had this to establish baseline prior to oncologic resection. Will advance her diet to clears and see if she tolerates this and she will continue this at home until her definitive surgery and will call with any problems. cc: MD Andrea Matos MD
== END 2019-09-25 20:15 | disposition home or self-care (01) ==
LOC: INTOOBSV 11:43 → DIRADM 11:43 → 4N 12:37
PROVIDERS: ADMIT Internal Medicine; ATTEND Internal Medicine

== ENCOUNTER 2019-10-30 06:50 | Inpatient (IN) ==
[2019-10-30] MEDS ORDERED: ENTEREG ONE (07:15)
[2019-10-30] MEDS ORDERED: DIPRIVAN 1% ONE (07:15)
[2019-10-30] MEDS ORDERED: LR 1,000 ML ONE (07:16)
[2019-10-30] MEDS ORDERED: MEFOXIN 2 GM/D5W 2 GM/50 ML IVPB ONE (07:16)
[2019-10-30] MEDS ORDERED: SODIUM CHLORIDE 0.9% 10 ML ONE ×2 (07:17→07:43)
[2019-10-30] MEDS ORDERED: XYLOCAINE-MPF 2% ONE (07:17)
[2019-10-30] MEDS ORDERED: NORCURON ONE (07:17)
[2019-10-30] MEDS ORDERED: VERSED ONE (07:20)
[2019-10-30] MEDS ORDERED: FENTANYL ONE (07:22)
[2019-10-30] MEDS ORDERED: PEPCID ONE (07:26)
[2019-10-30] MEDS ORDERED: REGLAN ONE (07:26)
[2019-10-30] MEDS ORDERED: VALIUM ONE (07:27)
[2019-10-30] MEDS ORDERED: MARCAINE 0.25% ONE (07:44)
[2019-10-30] MEDS ORDERED: EXPAREL 1.3% ONE (07:45)
[2019-10-30] MEDS ORDERED: ROBINUL ONE ×2 (07:57→10:48)
[2019-10-30] MEDS ORDERED: NEOSTIGMINE ONE ×2 (07:59→10:48)
[2019-10-30 09:14] LABS: URINE SOURCE CATH
[2019-10-30 09:15] LABS: UR EPITHELIAL CELLS <10 /HPF (<10); URINE BACTERIA NEGATIVE /HPF; URINE RBC <10 /HPF (<10); URINE WBC <10 /HPF (<10)
[2019-10-30 09:16] LABS: BILIRUBIN URINE NEGATIVE (NEGATIVE); BLOOD URINE NEGATIVE (NEGATIVE); COLOR YELLOW; GLUCOSE URINE NEGATIVE (NEGATIVE); KETONE URINE NEGATIVE (NEGATIVE); LEUKOCYTES URINE NEGATIVE (NEGATIVE); NITRITE URINE NEGATIVE (NEGATIVE); PH URINE 5.5; PROTEIN URINE NEGATIVE (NEGATIVE); SP GRAVITY URINE 1.016; TURBIDITY URINE CLEAR (CLEAR); UROBILINOGEN URINE NORMAL (NORMAL)
[2019-10-30] MEDS ORDERED: DILAUDID ONE (10:34)
[2019-10-30] MEDS ORDERED: D5 1/2 NS + KCL 20 MEQ 1,000 ML ONE (11:16)
[2019-10-30] MEDS ORDERED: OFIRMEV 1000 MG/ISOTONIC SOLN 1,000 MG/100 ML BOTTLE ONE (11:20)
[2019-10-30] MEDS ORDERED: TYLENOL PO PRN (11:29)
[2019-10-30] MEDS ORDERED: TYLENOL PR PRN (11:29)
--- NOTE | 2019-10-30 11:59 | OPERATIVE NOTE ---
PROCEDURE DATE: 10/30/2019 PREOPERATIVE DIAGNOSES: 1. History of carcinoid tumor. 2. Small bowel stricture. 3. Possible recurrence of carcinoid tumor. POSTOPERATIVE DIAGNOSES: 1. History of carcinoid tumor. 2. Small bowel stricture. 3. Possible recurrence of carcinoid tumor. PROCEDURE: Exploratory laparotomy with small bowel resection. SURGEON: Red Aguirre MD. CROSSCUTTER: None. ANESTHESIA: General endotracheal. FINDINGS: Desmoplastic reaction at the mesentery at the area where previous resection was, concerning for cancer. Frozen showed cancer-like cells. COMPLICATIONS: None at time of dictation. ESTIMATED BLOOD LOSS: 100 mL SPECIMENS REMOVED: Small bowel measuring 80 cm. BRIEF HISTORY: A 53-year-old female, known to me who I have been following for carcinoid tumor. She had a repeat scan that showed a lymph node that was active. She also had a CT scan that showed a stricture. I felt that she would benefit from surgery. The risks, benefits, and alternatives were discussed. All questions answered. DESCRIPTION OF PROCEDURE: After informed consent was obtained, the patient was brought to the operative theatre, transferred to the operating table in supine position. General tracheal anesthesia was then performed without complication. A formal time-out was then performed confirming patient, date, procedure. All in agreement. At that time, attention was given to the abdomen. We made a standard midline incision. It should be noted that Anesthesia did a TAP block preoperatively. Once we entered into the abdomen there were some adhesions which we took down sharply. There appeared to be no injury to the small bowel secondary to this. We were able to eviscerate the small bowel, run it from the ileocecal valve to the ligament of Treitz. There was an area of dense desmoplastic reaction under previous surgical resection. We freed it up as best we could. We elected to do a small bowel resection at this area. Given the fact that the desmoplastic reaction was down in the mesentery, we had to make a larger resection. We found an area free both proximally and distally and transected the bowel there and then in a V shape down to the mesentery, took the mass from mesentery. Took it as close to a major vessel as I could. There is a possibility of still some tissue in vivo remaining, but I could not get any closer without sacrificing almost all her small bowel, because it was near what appeared to be the superior mesenteric artery. We then resected this and passed it off. There was another area right on the distal edge that appeared thickened. I sent down a specimen for frozen. It appeared to be positive, so we had to take additional small bowel. In total we took approximately 80 cm of small bowel. We then fashioned a small bowel anastomosis using a 90 load KURT stapler with good results. Both sides were viable and bleeding. We then closed the mesenteric defect, irrigated out the abdomen, and closed the abdomen. The patient had her abdomen closed with a running loop PDS on either side and skin katiuska. She tolerated the procedure well. Had an NG tube placed and confirmed in the stomach. She was transferred to the recovery room in stable condition. cc: Red Aguirre MD
[2019-10-30] MEDS: OFIRMEV 1000 MG/ISOTONIC SOLN 1,000 MG/100 ML BOTTLE IV SCH ×2 (15:31→21:27)
[2019-10-30] MEDS: MEFOXIN 2 GM/NS 2 GM/50 ML IVPB IV SCH ×2 (15:38→21:28)
[2019-10-30] MEDS: PERIDEX MT SCH (21:27)
[2019-10-30] MEDS: DILAUDID IV PRN (21:28)
[2019-10-30] MEDS: HEPARIN SUBQ SCH (21:28)
[2019-10-31] MEDS: MEFOXIN 2 GM/NS 2 GM/50 ML IVPB IV SCH ×2 (02:51→09:43)
[2019-10-31] MEDS: OFIRMEV 1000 MG/ISOTONIC SOLN 1,000 MG/100 ML BOTTLE IV SCH ×2 (02:52→09:43)
[2019-10-31] MEDS: HEPARIN SUBQ SCH ×3 (05:14→21:50)
[2019-10-31] MEDS: DILAUDID IV PRN ×4 (06:31→20:09)
[2019-10-31] MEDS: PROTONIX IV SCH (06:34)
[2019-10-31] MEDS: SODIUM CHLORIDE 0.9% INJ SCH (06:35)
--- NOTE | 2019-10-31 06:56 | GENERAL SURGERY PROGRESS NOTE ---
DATE: 10/31/2019 SUBJECTIVE: The patient is doing okay. She is sore in her incision, but otherwise is doing okay. She is not sick to her stomach, but she has not passed any gas or had a bowel movement. OBJECTIVE: Vital Signs: The patient is currently afebrile. Her vital signs are stable. General: No acute distress. Cardiovascular: Regular rate and rhythm. Lungs: Grossly clear. Abdomen: Soft, appropriately tender. Hypoactive bowel sounds. Dressing intact. ASSESSMENT AND PLAN: A 53-year-old female, postoperative day #1 from exploratory laparotomy, resection of small bowel secondary to recurrent carcinoid tumor. Postoperative state. At this time, will continue routine postoperative care. Given the amount of manipulation we had in her bowel, will keep the nasogastric tube in place. She is on heparin and Entereg. Will make sure she is on Protonix given her nasogastric tube. She will try to mobilize today. Will get her Castaneda catheter out today. She does have sequential compression devices ordered. I have consulted her primary care physician, Dr. Palacio, and her oncologist, Dr. Mary Manzano. cc: Red Aguirre MD
[2019-10-31] MEDS: D5 1/2 NS + KCL 20 MEQ 1,000 ML IV SCH ×2 (09:41→11:37)
[2019-10-31] MEDS: PERIDEX MT SCH ×2 (09:41→21:50)
[2019-10-31] MEDS: MOBIC PO SCH (09:42)
[2019-10-31] MEDS: ZOLOFT PO SCH (09:42)
[2019-10-31] MEDS: ENTEREG PO SCH ×2 (09:42→21:50)
[2019-10-31] MEDS: ZOFRAN IV PRN ×2 (09:49→18:54)
[2019-11-01] MEDS: DILAUDID IV PRN ×4 (01:02→22:39)
[2019-11-01] MEDS: HEPARIN SUBQ SCH ×3 (06:38→22:27)
[2019-11-01] MEDS: PROTONIX IV SCH (06:38)
[2019-11-01] MEDS: SODIUM CHLORIDE 0.9% INJ SCH (06:38)
[2019-11-01] MEDS: D5 1/2 NS + KCL 20 MEQ 1,000 ML IV SCH (06:38)
--- NOTE | 2019-11-01 08:41 | GENERAL SURGERY PROGRESS NOTE ---
DATE: 11/01/2019 SUBJECTIVE: Patient doing well. Her NG tube is in place but it looks like it has some dark blood- like material in it. It is irritating her more. She does have some bowel sounds. OBJECTIVE: Vital Signs: Patient is currently afebrile. Her vital signs are stable. General: No acute distress. Cardiovascular: Regular rate and rhythm. Lungs: Grossly clear. Abdomen: Soft, appropriately tender. Bowel sounds auscultated. ASSESSMENT AND PLAN: A 53-year-old female currently postoperative day #2 from exploratory laparotomy, small bowel resection. Postoperative state. At this time, given the fact that she has got more bloody output and the NG tube is probably causing her more discomfort than it is helping at this point, removed it at the bedside with patient tolerating well. We will keep her on her ice chips only at this point and continue to monitor. She does have Zofran ordered. She has not been sick to her stomach and I was more concerned that the NG tube might be irritating her stomach more than anything. She is on Protonix. We will continue routine postoperative care. cc: Red Aguirre MD
[2019-11-01] MEDS: ZOLOFT PO SCH (09:56)
[2019-11-01] MEDS: ENTEREG PO SCH ×2 (09:56→22:28)
[2019-11-01] MEDS: PERIDEX MT SCH ×2 (09:57→22:28)
[2019-11-01] MEDS: MOBIC PO SCH (09:57)
[2019-11-02] MEDS: D5 1/2 NS + KCL 20 MEQ 1,000 ML IV SCH ×2 (00:25→22:48)
[2019-11-02] MEDS: DILAUDID IV PRN (01:15)
[2019-11-02] MEDS: SODIUM CHLORIDE 0.9% INJ SCH (06:19)
[2019-11-02] MEDS: HEPARIN SUBQ SCH ×3 (06:20→20:55)
[2019-11-02] MEDS: PROTONIX IV SCH (06:20)
[2019-11-02] MEDS: MOBIC PO SCH (09:18)
[2019-11-02] MEDS: ENTEREG PO SCH ×2 (09:18→20:53)
[2019-11-02] MEDS: PERIDEX MT SCH ×2 (09:19→20:54)
[2019-11-02] MEDS: ZOLOFT PO SCH (09:19)
[2019-11-02] MEDS: NORCO-10 PO PRN ×2 (10:32→18:54)
--- NOTE | 2019-11-02 10:37 | GENERAL SURGERY PROGRESS NOTE ---
DATE: 11/02/2019 SUBJECTIVE: Patient doing well. She has passed gas. She has had a couple of bowel movements. She is not sick to her stomach. She is up and ambulating. Her pain is getting better controlled. OBJECTIVE: Vital Signs: Patient is currently afebrile. Her vital signs are stable. General: No acute distress. Cardiovascular: Regular rate and rhythm. Lungs: Grossly clear. Abdomen: Soft, appropriately tender. Incision is healing well. Bowel sounds auscultated. ASSESSMENT AND PLAN: A 53-year-old female currently postoperative day #3 from exploratory laparotomy and small-bowel resection. Postoperative state. At this time, we will put her on a clear liquid diet and have orders to advance as tolerated. We will switch her over to p.o. pain medicine. We will continue to monitor. Hopefully, if she continues to improve, she can be discharged over the weekend by my partner, who is covering. cc: Red Aguirre MD
--- NOTE | 2019-11-02 20:33 | HEMO/ONC CONSULTATION ---
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 PAST SURGICAL HISTORY: Left total hip replacement in 2005, right total hip replacement in 2012, laminectomy in 2012, C-sections in 1991, 1997 and 2001. ALLERGIES: Penicillin. MEDICATIONS: Reviewed per the chart. SOCIAL HISTORY: No tobacco. 1 to 2 drinks of alcohol per year. No illicit drug use. FAMILY MEDICAL HISTORY: Mom has a history of lymphoma but is alive and well. Dad at 69 with heart disease. Children are 27, 21 and 17 and healthy. She has a 56-year-old sibling who is healthy. REVIEW OF SYSTEMS: Pertinent positives and negatives as per HPI. All other review of systems negative. PHYSICAL EXAMINATION: VITAL SIGNS: At the time of consultation, temperature is 98.2, pulse 84, respiratory rate 14, blood pressure 111/64, O2 saturation 100% on 2 L nasal cannula.General: This is a well-developed, well-nourished, woman in no acute distress. She has an NG tube in place. Her is at the bedside during consultation. Eyes: Sclerae anicteric. Cardiovascular: Regular rate and rhythm. Normal S1, S2. No murmurs, rubs, or gallops. Pulmonary: Lungs are clear to auscultation bilaterally without wheezes, rales, or rhonchi. Abdomen: Soft, nontender, nondistended with no bowel sounds. Extremities: No lower extremity edema. Neurologic: No deficits. LABS: No labs are noted at this time. No imaging pertinent at this time. ASSESSMENT AND PLAN: 1. Recurrent carcinoid tumor: Preliminary pathology shows positive kennedy involvement. We are awaiting final pathology. We will follow her up as an outpatient for further management of her disease. We will be monitoring her with PET Dotatate, which was the only imaging that was able to fern picker on her recurrence at this time. We will monitor urologic markers as well. 2. Bowel obstruction: Should be resolved after her surgery. She is n.p.o. with an NG tube at this time. Continue current management. We will follow her throughout her hospital course and make further recommendations as indicated. Thank you for this consultation and the opportunity to follow along with this patient known to us. We appreciate your surgical management of her. Az#: [id number] cc: MD Red Jimenez MD
[2019-11-03] MEDS: HEPARIN SUBQ SCH (05:43)
[2019-11-03] MEDS: PROTONIX IV SCH (05:43)
[2019-11-03 07:39] VITALS: BP 112/64
[2019-11-03] MEDS: MOBIC PO SCH (08:00)
[2019-11-03] MEDS: ZOLOFT PO SCH (08:01)
[2019-11-03] MEDS: PERIDEX MT SCH (08:01)
[2019-11-03] MEDS: ENTEREG PO SCH (08:01)
[2019-11-03] MEDS: NORCO-10 PO PRN (08:05)
--- NOTE | 2019-11-03 16:13 | GENERAL SURGERY PROGRESS NOTE ---
DATE: 11/03/2019 SUBJECTIVE: The patient is doing well with minimal abdominal pain. No nausea or vomiting. She is tolerating a liquid diet. She is passing gas and having some bowel movements. She is ambulating and voiding. OBJECTIVE: She is afebrile. Vital signs are stable.General: She is awake, alert, oriented x3. No acute distress. CV: Regular rate and rhythm. Respiratory: No work of breathing. Gastrointestinal: Soft, nondistended, minimally tender. Incision is clean, dry, and intact without erythema and appropriately tender. LABORATORY: None today. ASSESSMENT AND PLAN: A 53-year-old female postoperative day 4 small bowel resection for probable recurrent carcinoid. Clinically, she is doing well postoperatively. We will discharge her home today if she tolerates her soft diet. She will follow up with Dr. Aguirre and Dr. Mary Manzano. Instructions were given. cc: MD Red Mack MD
--- NOTE | 2019-11-05 08:31 | HEMO/ONC CONSULTATION ---
DATE: 11/02/2019 HISTORY OF PRESENT ILLNESS: Ms. Luna is a pleasant 53-year-old woman who is known to me for her history of a carcinoid tumor. She had recurrent small-bowel obstructions in 2019 and was admitted for planned colon resection with lymphadenectomy for suspected recurrent carcinoid tumor and/or stricture causing her recurrent obstruction. She is status post that procedure on the day of consultation and is present in the room with an NG tube in place. cc: MD Red Jimenez MD
--- NOTE | 2019-11-06 17:18 | DISCHARGE SUMMARY ---
ADMISSION DATE: 10/30/2019 DISCHARGE DATE: 11/03/2019 ADMITTING DIAGNOSIS: Recurrent carcinoid tumor. DISCHARGE DIAGNOSIS: Status post resection of recurrent carcinoid tumor. ADMITTING PHYSICIAN: Dr. Red Aguirre CONSULTATIONS: Dr. Manzano with Oncology. PROCEDURES: On 10/30/2019, patient underwent exploratory laparotomy, small bowel resection. BRIEF HISTORY AND COURSE OF STAY: 53-year-old female who was admitted for possible recurrence of her carcinoid tumor in the small bowel. She was admitted, underwent previously described procedure which she tolerated well. Her postoperative course was uneventful. She had return of bowel function relatively quickly and was advanced to a regular diet. On the day of discharge, she was up and ambulating having bowel movements, tolerating regular diet with her pain control. At that point, it was felt that she would be safe to be discharged home. All arrangements were made. DISPOSITION: Home. DISCHARGE CONDITION: Stable. DISCHARGE MEDICATIONS: She was given prescriptions for pain medicine and antinausea medicine. FOLLOW-UP INSTRUCTIONS: Patient told to follow up with myself, her primary care physician, and Dr. Manzano. cc: Red [facility]re MD [facility]
== END 2019-11-03 12:18 | disposition home or self-care (01) | DRG 330 ==
LOC: SURHOLD 06:50 → 4N 08:40
PROVIDERS: ADMIT Surgery; ATTEND Surgery